=== PATIENT | male | born 2000 | race Caucasian/White ===

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

== ENCOUNTER 2022-07-16 08:39 | Emergency (ER) | payer BC, OTHER ==
--- OUTSIDE RECORDS SUMMARY | 2022-07-16 08:44 | XMS REPORT | Continuity of Care Document ---
:2000 Author Organization [facility] t Address [address] [place] [address] Dr. Rios. [address] [place] [address] Care Team Providers Name Role Phone Will Wesley Primary Care Physician ADE VAN Attending Clinician Unavailable Ade Van MD Attending Clinician Doctor Unassigned, [place] Attending Clinician Unavailable HOANG NAPIER Attending Clinician Unavailable Hoang Mc Attending Clinician Miles Rincon MD Attending Clinician RAMOS GARG Attending Clinician Unavailable TAZ PATINO Attending Clinician Unavailable Taz Alexander Attending Clinician JAMI LOOMIS Attending Clinician Unavailable Only, Ang Db Test Attending Clinician Unavailable Jami Loomis PA-C Attending Clinician Destiny COLLINSPema Attending Clinician Unavailable Nette Orr MD Attending Clinician NTETE ORR Attending Clinician Unavailable Erin Encinas Attending Clinician Jenna HUFFMAN, Nader Hooker Attending Clinician HOANG NAPIER Admitting Clinician Unavailable Payers Payer Name Policy Type Policy Number Effective Date Expiration Date Dayana IRVING [id number] 2016 HEALTH 00:00:00 Problems Condition Condition Condition Status Onset Resolution Last Treating Co mments Source Name Details Category Date Date Treatment Clinician Date No known No known Disease Unive rs active active ity of problems problems [facility] Allergies, Adverse Reactions, Alerts Allergy Allergy Status Severity Reaction(s) Onset Inactive Treating Comm ents Source Name Type Date Date Clinician No Known DA Active U [facility] Allergie 2-20 Clear s 00:00: Trinh 00 [facility] NO KNOWN Drug Active Univers ALLERGIE Class ity of S [facility] Social History Social Habit Start Date Stop Date Quantity Comments Source Exposure to 2022-06-26 2022-07-06 Not sure [facility] SARS-CoV-2 00:00:00 19:56:00 [facility] (event) [place] Tobacco use and 2019-05-28 2019-05-28 Smokeless tobacco Un iversity of exposure 00:00:00 00:00:00 non-user [facility] Sex Assigned At [birth year] Universit y of 00:00:00 00:00:00 [facility] Smoking Status Start Date Stop Date Source Never smoked tobacco [facility] Medications Ordered Filled Start Stop Current Ordering Indication Dosage Frequency Signature Comments Components Source Medication Medication Date Date Medication? Clinician (SIG) Name Name clotrimazol 2021-07 Yes [id number] 1{appli Apply 1 Univers e 1 % 2-27 cator} Applicator ity of ointment 00:00: to area(s) [place] 00 2 (two) Medical times [place] daily. mupirocin 2 2021-07 Yes [id number] Apply to Univers % ointment 2-27 area(s) 3 ity of 00:00: (three) [place] 00 times Medical daily. Branch clindamycin 2021-07- Yes [id number] 300mg Take 1 Univers 300 mg 2-27 07-17 capsule by ity of capsule 00:00: 05:59 mouth 4 [place] 00 :00 (four) Medical times Branch daily for 10 days. fluoxetine 0 Yes Take by Univ ers HCl 1-25 mouth. ity of (FLUOXETINE 00:15: [place] ORAL) 50 Medical Branch traZODone 0 Yes 50mg Take 50 mg Un maurizio 50 mg 1-25 by mouth ity of tablet 00:15: at bedtime [place] 50 as needed Medical for Branch Insomnia. fluoxetine 0 Yes Take by Univ ers HCl 1-25 mouth. ity of (FLUOXETINE 00:15: [place] ORAL) 50 Medical Branch traZODone 0 Yes 50mg Take 50 mg Un maurizio 50 mg 1-25 by mouth ity of tablet 00:15: at bedtime [place] 50 as needed Medical for Branch Insomnia. fluoxetine 0 Yes Take by Univ ers HCl 1-25 mouth. ity of (FLUOXETINE 00:15: [place] ORAL) 50 Medical Branch traZODone 0 Yes 50mg Take 50 mg Un maurizio 50 mg 1-25 by mouth ity of tablet 00:15: at bedtime [place] 50 as needed Medical for Branch Insomnia. fluoxetine 0 Yes Take by Univ ers HCl 1-25 mouth. ity of (FLUOXETINE 00:15: [place] ORAL) 50 Medical Branch traZODone 0 Yes 50mg Take 50 mg Un maurizio 50 mg 1-25 by mouth ity of tablet 00:15: at bedtime [place] 50 as needed Medical for Branch Insomnia. fluoxetine 0 Yes Take by Univ ers HCl 1-25 mouth. ity of (FLUOXETINE 00:15: [place] ORAL) 50 Medical Branch traZODone 0 Yes 50mg Take 50 mg Un maurizio 50 mg 1-25 by mouth ity of tablet 00:15: at bedtime [place] 50 as needed Medical for Branch Insomnia. fluoxetine 0 Yes Take by Univ ers HCl 1-25 mouth. ity of (FLUOXETINE 00:15: [place] ORAL) 50 Medical Branch traZODone 0 Yes 50mg Take 50 mg Un maurizio 50 mg 1-25 by mouth ity of tablet 00:15: at bedtime [place] 50 as needed Medical for Branch Insomnia. fluoxetine 0 Yes Take by Univ ers HCl 1-25 mouth. ity of (FLUOXETINE 00:15: [place] ORAL) 50 Medical Branch traZODone 2020-0 Yes 50mg Take 50 mg Un maurizio 50 mg 1-25 by mouth ity of tablet 00:15: at bedtime [place] 50 as needed Medical for Branch Insomnia. fluoxetine 0 Yes Take by Univ ers HCl 1-25 mouth. ity of (FLUOXETINE 00:15: [place] ORAL) 50 Medical Branch traZODone 2020-0 Yes 50mg Take 50 mg Un maurizio 50 mg 1-25 by mouth ity of tablet 00:15: at bedtime [place] 50 as needed Medical for Branch Insomnia. fluoxetine 0 Yes Take by Univ ers HCl 1-25 mouth. ity of (FLUOXETINE 00:15: [place] ORAL) 50 Medical Branch traZODone 2020-0 Yes 50mg Take 50 mg Un maurizio 50 mg 1-25 by mouth ity of tablet 00:15: at bedtime [place] 50 as needed Medical for Branch Insomnia. fluoxetine 0 Yes Take by Univ ers HCl 1-25 mouth. ity of (FLUOXETINE 00:15: [place] ORAL) 50 Medical Branch traZODone 0 Yes 50mg Take 50 mg Un maurizio 50 mg 1-25 by mouth ity of tablet 00:15: at bedtime [place] 50 as needed Medical for Branch Insomnia. FLUoxetine 0 Yes [id number] 20mg Take 1 U nivers 20 mg 1-25 capsule by ity of capsule 00:00: mouth [place] 00 daily. Medical Branch FLUoxetine 2020-0 Yes [id number] 20mg Take 1 U nivers 20 mg 1-25 capsule by ity of capsule 00:00: mouth [place] 00 daily. Medical Branch FLUoxetine 2020-0 Yes [id number] 20mg Take 1 U nivers 20 mg 1-25 capsule by ity of capsule 00:00: mouth [place] 00 daily. Medical Branch FLUoxetine 2020-0 Yes [id number] 20mg Take 1 U nivers 20 mg 1-25 capsule by ity of capsule 00:00: mouth [place] 00 daily. Medical Branch FLUoxetine 2020-0 Yes [id number] 20mg Take 1 U nivers 20 mg 1-25 capsule by ity of capsule 00:00: mouth [place] 00 daily. Medical Branch FLUoxetine 2020-0 Yes [id number] 20mg Take 1 U nivers 20 mg 1-25 capsule by ity of capsule 00:00: mouth [place] 00 daily. Medical Branch FLUoxetine 2021-0 Yes [id number] 20mg Take 1 U nivers 20 mg 1-25 capsule by ity of capsule 00:00: mouth [place] 00 daily. Medical Branch FLUoxetine 2021-0 Yes [id number] 20mg Take 1 U nivers 20 mg 1-25 capsule by ity of capsule 00:00: mouth [place] 00 daily. Medical Branch FLUoxetine 2021-0 Yes [id number] 20mg Take 1 U nivers 20 mg 1-25 capsule by ity of capsule 00:00: mouth [place] 00 daily. Medical Branch FLUoxetine 2021-0 Yes [id number] 20mg Take 1 U nivers 20 mg 1-25 capsule by ity of capsule 00:00: mouth [place] 00 daily. Medical Branch VYVANSE 40 Yes TAKE ONE Uni vers mg capsule 8-09 CAPSULE BY ity of 00:00: MOUTH [place] 00 EVERY Medical MORNING Branch [facility] 40 Yes TAKE ONE Uni vers mg capsule 8-09 CAPSULE BY ity of 00:00: MOUTH [place] 00 EVERY Medical MORNING Branch [facility] 40 Yes TAKE ONE Uni vers mg capsule 8-09 CAPSULE BY ity of 00:00: MOUTH [place] 00 EVERY Medical MORNING Branch VANS 40 Yes TAKE ONE Uni vers mg capsule 8-09 CAPSULE BY ity of 00:00: MOUTH [place] 00 EVERY Medical MORNING Branch VYVANS 40 Yes TAKE ONE Uni vers mg capsule 8-09 CAPSULE BY ity of 00:00: MOUTH [place] 00 EVERY Medical MORNING Branch VYVANS 40 Yes TAKE ONE Uni vers mg [...] Time Observation Value Comments Source Systolic blood 2022-07-07 02:00:00 120 mm[Hg] Univer sity of pressure [place] [facility] Diastolic blood 2022-07-07 02:00:00 77 mm[Hg] Unive rsity of pressure [facility] Heart rate 2022-07-07 02:00:00 88 /min Universi ty of [place] [facility] [place] Body temperature 2022-07-07 02:00:00 37 Zahida Univ ersity of [facility] Branch Respiratory rate 2022-07-07 02:00:00 16 /min Univ ersity of [place] [facility] Branch Body height 2022-07-07 02:00:00 175.3 cm Universi ty of [place] [facility] [place] Body weight 2022-07-07 02:00:00 82.555 kg Universi ty of [place] [facility] Branch BMI 2022-07-07 02:00:00 26.88 kg/m2 Universi ty of [facility] Oxygen saturation in 2022-07-07 02:00:00 99 /min [facility] Arterial blood by [facility] Pulse oximetry Branch Systolic blood 2021-10-20 18:00:00 123 mm[Hg] Univer sity of pressure [facility] Diastolic blood 2021-10-20 18:00:00 74 mm[Hg] Unive rsity of pressure [facility] Heart rate 2021-10-20 18:00:00 68 /min Universi ty of [place] [facility] Body height 2021-10-20 18:00:00 175.3 cm Universi ty of [place] [facility] [place] Body weight 2021-10-20 18:00:00 74.844 kg Universi ty of [place] [facility] BMI 2021-10-20 18:00:00 24.37 kg/m2 Universi ty of [place] [facility] [place] Body mass index 2021-10-20 18:00:00 71.11 % Unive rsity of (BMI) [Percentile] [place] Med ical Per age and sex Branch Procedures Procedure Date / Time Performed Performing Clinician [facility] e CONSENT/REFUSAL FOR 2022-07-07 01:28:38 Doctor [facility]igned, [facility] Name Medical Branch TREATMENT EXTERNAL PROVIDER 2021-11-25 05:01:00 Doctor Unassigned, No Univ ersity [facility] RECORDS Name Medical Branch EXTERNAL PROVIDER 2021-11-17 05:01:00 Doctor Unassigned, No [facility] RECORDS Name Medical Branch MR SHOULDER RIGHT WO 2021-11-12 14:30:00 Hoang Napier [facility] ASSIGNMENT OF BENEFITS 2021-11-12 13:41:36 Doctor Unassigned, No [facility] Name Medical Branch REFERRAL- 2021-10-29 05:01:00 Doctor [facility]assigned, No [facility] REQUEST/RESPONSE Name Medical [place] Encounters Start End Encounter Admission Attending Care Care Encounter Source Date/Time Date/Time Type Type Clinicians Facility Department ID 2021-05-09 Emergency [facility] [id number] Univers 19:11:46 itlaurie [facility] 2022-07-06 2022-07-06 Emergency X [facility] E[facility] [id number] Univers 20:03:00 20:47:00 ADE nolasco [facility] 2022-07-06 2022-07-06 Emergency [facility] [id number] Univers 20:03:00 20:47:00 Ade BARCENAS 350.1.13.10 i ty [facility] 4.2.7.2.686 [place] [facility] [phone] [facility] 084 [place] 2021-11-25 2021-11-25 Orders Doctor CROOK 1.2.840.114 [id number] Univers 00:00:00 00:00:00 Only Unassigned, SONYA 350.1.13.10 ity of [place] [facility] 4.2.7.2.686 [place] [phone] [facility] 009 [place] 2021-11-17 2021-11-17 Orders Doctor ARMAAN 1.2.840.114 [id number] Univers 00:00:00 00:00:00 Only Unassigned, SONYA 350.1.13.10 ity of [place] [facility] 4.2.7.2.686 [place] [phone] [address] 2021-11-12 2021-11-12 Outpatient R KARTHIKEYAN [facility] [id number] Univers 08:43:56 23:59:00 HOANG nolasco [facility] 2021-11-12 2021-11-12 [facility] 1.2.840.114 [id number] Univers 08:43:56 23:59:00 Encounter Hoang S [place] 350.1.13.10 ity of [place] 4.2.7.2.686 [place] [phone] [facility] 804 [place] 2021-11-12 2021-11-12 Orders Doctor ARMAAN 1.2.840.114 [id number] Univers 00:00:00 00:00:00 Only Unassigned, SONYA 350.1.13.10 ity of [place] [facility] 4.2.7.2.686 [place] as [phone] [facility] 009 [place] 2021-11-12 2021-11-12 Telephone [facility] 1.2.840.114 [id number] Univers 00:00:00 00:00:00 Miles L HEALTH 350.1.13.10 it y of [place] 4.2.7.2.686 [place] as GORDON?BLEA [phone] Ky smith [address] MEDICAL [facility] 2021-11-04 2021-11-04 Telephone [facility] [id number] Univers 00:00:00 00:00:00 Hoang S HEALTH 350.1.13.10 it [facility] 4.2.7.2.686 [place] GORDON?BLEA [phone] [place] smith [address] [facility] 2021-10-29 2021-10-29 Orders Doctor ARMAAN 1.2.840.114 [id number] Univers 00:00:00 00:00:00 Only Unassigned, SONYA 350.1.13.10 ity of [place] [facility] 4.2.7.2.686 [place] as [phone] [facility] 009 [place] 2021-10-28 2021-10-28 Telephone [facility] [id number] Univers 00:00:00 00:00:00 Hoang S HEALTH 350.1.13.10 it y of [place] 4.2.7.2.686 [place] GORDON?BLEA [phone] Ky smith [address] [facility] 2021-10-20 2021-10-20 [facility] [id number] Univers 13:15:00 14:13:28 [facility] 2021-10-20 2021-10-20 [facility] 1.2.840.114 [id number] Univers 13:15:00 13:30:00 Visit [facility] 350.1.13.10 it y of [facility] 4.2.7.2.686 [place] as GORDON?BLEA [phone] Ky smith CRUZ [address] [place] [address] [facility] 2021-10-20 2021-10-20 Outpatient Tomer NAPIER [facility] [id number] Univers 13:15:00 13:15:00 HOANG laurie [facility] 2021-09-29 2021-09-29 Outpatient [facility] [id number] Univers 14:10:00 23:59:00 [facility] 2021-09-29 2021-09-29 Office [facility] 1.2.840.114 [id number] Univers 14:30:00 15:00:00 Visit [facility] 350.1.13.10 it y of [facility] 4.2.7.2.686 [place] as GORDON?BLEA [phone] Ky glennheidy CRUZ [address] [place] [address] [facility] 2021-09-29 2021-09-29 Outpatient Tom[facility] [id number] Univers 14:30:00 14:37:47 HOANG [facility] 2021-09-22 2021-09-22 Orders Doctor ARMAAN 1.2.840.114 [id number] Univers 00:00:00 00:00:00 Only Unassigned, SONYA 350.1.13.10 ity of [place] [facility] 4.2.7.2.686 [place] [phone] [address] 2021-07-11 2021-07-11 Outpatient Tomer GARG [facility] [id number] Univers 11:00:00 11:00:00 [facility] 2021-07-08 2021-07-08 Emergency X SUKUMAR, [facility] ERT [id number] Univers 21:22:00 22:03:00 TAZ ity [facility] 2021-07-08 2021-07-08 [facility] 1.2.840.114 [id number] Univers 21:22:00 22:03:00 Taz Ely SWAPNA 350.1.13.10 i ty [facility] 4.2.7.2.686 [place] [phone] [facility] 084 [place] 2021-07-05 2021-07-05 Outpatient R VLADISLAV [facility] [id number] Univers 14:45:00 15:51:29 [facility] 2021-07-05 2021-07-05 Laboratory Only, Ang Db Test [facility] 1.2.8 40.114 [id number] Univers 14:45:00 15:00:00 Only Vladislav Jami [place] 350.1.13.10 ity of [place] 4.2.7.2.686 [place] as GORDON?BLEA [phone] [address] [facility] 2021-04-06 2021-04-06 Letter ARMAAN [place] 1.2.840.114 [id number] Univers 00:00:00 00:00:00 (Out) Pema HASSAN 350.1.13.10 it y of [facility] 4.2.7.2.686 [place] as [phone] [facility] 019 [place] 2021-04-05 2021-04-05 Laboratory Only, Ang Db Test [facility] 1.2.8 40.114 [id number] Univers 13:17:46 13:32:46 Only Kirby Nette I2 [employer] 350.1.13.10 ity of [place] 4.2.7.2.686 [place] Gordon?Blea [phone] [address] Medical Office [facility] 2021-04-05 2021-04-05 Outpatient R KIRBY [facility] [id number] Univers 13:30:00 13:30:00 NETTE [facility] 2021-04-05 2021-04-05 Orders Doctor CROOK 1.2.840.114 [id number] Univers 00:00:00 00:00:00 Only UnassignedSONYA 350.1.13.10 ity of [place] [facility] 4.2.7.2.686 [place] as [phone] [facility] 009 Branch 2021-03-30 2021-03-30 Laboratory Only, Ang Db Test [facility] 1.2.8 40.114 [id number] Univers 16:46:16 17:01:16 Only Erin Ross [facility] 350.1.13.10 ity of [place] 4.2.7.2.686 [place] as Gordon?Blea [phone] [address] Medical Office Building 2021-03-30 2021-03-30 Outpatient R [facility] [id number] Univers 17:00:00 17:00:00 ity of [facility] 2021-03-30 2021-03-30 Letter Doctor ARMAAN 1.2.840.114 [id number] Univers 00:00:00 00:00:00 (Out) Unassigned, SONYA 350.1.13.10 ity of [place] [facility] 4.2.7.2.686 [place] as [phone] [facility] 044 [place] 2021-03-30 2021-03-30 Letter Doctor ARMAAN 1.2.840.114 [id number] Univers 00:00:00 00:00:00 (Out) Unassigned, SONYA 350.1.13.10 ity of [place] [facility] 4.2.7.2.686 [place] as [phone] [facility] 044 [place] 2020-08-03 2020-08-04 Emergency [facility], [facility] [id number] 22:33:00 02:43:00 Nader Barcenas 350.1.13.10 [place] 4.2.7.2.686 [place] [id number] [facility] 2020-08-03 2020-08-04 Emergency [facility] [id number] Univers 22:33:00 02:43:00 Nader Barcenas 350.1.13.10 ity of [place] 4.2.7.2.686 [place] [facility] [phone] [address] Results Test Description Test Time Test Comments Results Result Comments Source SURGICAL SPECIMENS 2018-09-06 07:45:00 RUN DATE: 09/06/18 [facility] *LIVE* PAGE 1 RUN TIME: 744 Specimen Inquiry RUN USER: INTERFACE PAT IENT: SHANTHI BURNHAM LOC: JAKE U #: [id number] AGE/SX: 17/M ROOM: RE09/01/18REG DR: Jose Crowe MD : 02 BED: DIS: STATUS: [facility] TLOC: SPEC #: [id number] RECD: 09/01/18 STATUS: RAVI REQ #: [id number] LOLA: 09/01/[address] [facility] [address]: Jose Crowe MD ENTERED: 09/05/18 SP TYPE: SURG SPEC OTHR DR: Leon Guadalupe MD ORDERED: LEVEL 4 CODES: [id number] - SOFT TISSUES, N COPIES TO: Leon Guadalupe MD [address] [place] [address] [id number] Jose Crowe MD [address] [place] [address] [address] [place] [address] PROCEDURES: GM LEVEL 4 (Incomplete) TISSUES: 1. [...] CONTINUED ON NEXT PAGE RUN DATE: 09/06/18 [facility] *LIVE* PAGE 2 RUN TIME: 0745 Specimen Inquiry RUN USER: INTERFACE TANNER Hawley #: [id number] PATIENT: SHANTHI BURNHAM #[id number] (Continued)-------- -------- Signed SIGNATURE ON FILE Jose [...] REQUIRED (test code = MDIFF) NO PROTHROMBIN [id number] 08:09:00 Test Item Value Reference Range Interpretation Comments PROTHROMBIN TIME 13.1 SECONDS 9.3-12.9 H PATIENT (test code = PTP) INTERNATIONAL NORMAL 1.2 0.8-1.2 N TARGET INR BY RATIO (test code = INDICATIO N Indication INR) INR1. Prophylax is of venous thrombos is 2.0 - 3.0 (orthoped ic surgery), Proph ylaxis of venous throm bosis (other than hig h-risk surgery), Treat ment of Deep Vein Thrombosis/Pulm onary Embolism, Preve ntion of systemic emb olism - Tissue heart va lves, Acute Myocardia l Infarction (to prevent systemic emboli sm), Valvular heart disease, Atrial Fibrillation, Bileaflet mecha nical valve in aortic position.2. Mec hanical prosthetic valv es (high risk), 2. 5 - 3.5 Presence of Lup us Anticoagulant o r Antiphospholipi d Antibodies, Pre vention of systemic emb olism - Acute Myocardia l Infarction (to prevent recurrent infar ct). THROMBOPLASTIN TIME [id number] 08:09:00 Test Item Value Reference Range Interpretation Comments THROMBOPLASTIN TIME 31.6 Seconds 25.0-39.5 N Therape utic Range: PARTIAL (test code = 61.8-83 .8 Sec PTT) Effective 08/08/2013
[2022-07-16] MEDS ORDERED: LIDOCAINE 1% 20 ML MDV ONE (09:08)
--- NOTE | 2022-07-16 09:40 | EDPHYS ---
Physician Documentation [facility] Name: Joycelyn Lopes Age: 21 yrs Sex: Male : 2000 Arrival Date: 07/16/2022 Time: 08:41 Bed 5 Private MD: ED Physician Carl Nichols HPI: 07/16 09:05 This 21 yrs old Male presents to ER via Wheelchair with complaints of Laceration To Leg.snw 09:05 The patient has a laceration related to: working, chainsaw, occurred outdoors, at work, snw and there are no complicating factors. The laceration(s) is(are) located on the left quadriceps. Onset: The symptoms/episode began/occurred suddenly, just prior to arrival. Associated signs and symptoms: The patient has no apparent associated signs or symptoms. The patient has not experienced similar symptoms in the past. The patient has not recently seen a physician. Historical: - Allergies: 08:46 Phenergan; ap3 - Home Meds: 08:46 None [Active]; ap3 - PMHx: 08:46 ADD/ADHD; Depression; Hernia; oppositional disruptive behavior; ap3 - PSHx: 08:46 hernia repair; ap3 - Immunization history:: Client reports having NOT received the Covid vaccine. Last tetanus immunization: up to date Flu vaccine is up to date. - Social history:: Smoking status: Reported history of juuling and/or vaping. ROS: 09:03 Constitutional: Negative for fever, chills, and weight loss, Eyes: Negative for injury, snw pain, redness, and discharge, ENT: Negative for injury, pain, and discharge, Neck: Negative for injury, pain, and swelling, Cardiovascular: Negative for chest pain, palpitations, and edema, Respiratory: Negative for shortness of breath, cough, wheezing, and pleuritic chest pain, Abdomen/GI: Negative for abdominal pain, nausea, vomiting, diarrhea, and constipation, Back: Negative for injury and pain, : Negative for injury, bleeding, discharge, and swelling, MS/Extremity: Negative for injury and deformity, Neuro: Negative for headache, weakness, numbness, tingling, and seizure, Psych: Negative for depression, anxiety, suicide ideation, homicidal ideation, and hallucinations. 09:03 Skin: Positive for laceration(s), of the left quadriceps. Exam: 09:01 Constitutional: This is a well developed, well nourished patient who is awake, alert, snw and in no acute distress. Head/Face: Normocephalic, atraumatic. Eyes: Pupils equal round and reactive to light, extra-ocular motions intact. Lids and lashes normal. Conjunctiva and sclera are non-icteric and not injected. Cornea within normal limits. Periorbital areas with no swelling, redness, or edema. ENT: Nares patent. No nasal discharge, no septal abnormalities noted. Tympanic membranes are normal and external auditory canals are clear. Oropharynx with no redness, swelling, or masses, exudates, or evidence of obstruction, uvula midline. Mucous membranes moist. Neck: Trachea midline, no thyromegaly or masses palpated, and no cervical lymphadenopathy. Supple, full range of motion without nuchal rigidity, or vertebral point tenderness. No Meningismus. Chest/axilla: Normal chest wall appearance and motion. Nontender with no deformity. No lesions are appreciated. 09:01 Respiratory: Lungs have equal breath sounds bilaterally, clear to auscultation and percussion. No rales, rhonchi or wheezes noted. No increased work of breathing, no retractions or nasal flaring. Abdomen/GI: Soft, non-tender, with normal bowel sounds. No distension or tympany. No guarding or rebound. No evidence of tenderness throughout. Back: No spinal tenderness. No costovertebral tenderness. Full range of motion. MS/ Extremity: Pulses equal, no cyanosis. Neurovascular intact. Full, normal range of motion. Neuro: Awake and alert, GCS 15, oriented to person, place, time, and situation. Cranial nerves II-XII grossly intact. Motor strength 5/5 in all extremities. Sensory grossly intact. Cerebellar exam normal. Normal gait. Psych: Awake, alert, with orientation to person, place and time. Behavior, mood, and affect are within normal limits. 09:01 Cardiovascular: Rate: tachycardic. 09:01 Skin: Appearance: Color: normal in color, injury, laceration(s), the wound is approximately 5 cm(s), with a depth of 3 cm(s), of the left quadriceps. Vital Signs: 08:44 BP 118 / 81; Pulse 94; Resp 17; Temp 97.8; Pulse Ox 98% ; Weight 82.1 kg; Height 5 ft. ap3 9 in. (175.26 cm); Pain 5/10; 08:44 Body Mass Index 26.73 (82.10 kg, 175.26 cm) ap3 Laceration: 09:32 Wound Repair of 5cm ( 2.0in ) subcutaneous laceration to left quadriceps. Linear snw shaped.. Distal neuro/vascular/tendon intact. Anesthesia: Wound infiltrated with 6 mls of 1% lidocaine. Wound prep: Extensive cleansing with hibiclenz by nurse by me. Skin closed with 7 3-0 Silk using simple sutures and sterile technique. Dressed with 4x4's, non-adherent dressing, sreekanth. Patient tolerated well. MDM: 08:49 Patient medically screened. snw 09:04 Data reviewed: vital signs, nurses notes. Data interpreted: Pulse oximetry: on room air snw is 98 %. Interpretation: normal. Counseling: I had a detailed discussion with the patient and/or guardian regarding: the historical points, exam findings, and any diagnostic results supporting the discharge/admit diagnosis, the need for outpatient follow up, for definitive care, to return to the emergency department if symptoms worsen or persist or if there are any questions or concerns that arise at home. Special discussion: I have referred the patient to see his PCP for further evaluation of high blood pressure. Based on the history and exam findings, there is no indication for further emergent testing or inpatient evaluation. I discussed with the patient/guardian the need to see the primary care provider for further evaluation of the symptoms. 07/16 09:01 Order name: Suture Tray Setup; Complete Time: 09:02 snw 07/16 09:42 Order name: Wound dressing; Complete Time: 09:48 snw 07/16 09:42 Order name: Sreekanth Wrap; Complete Time: 09:48 snw Administered Medications: 09:20 Drug: Hibiclens (chlorhexidine) Liquid 4 % 1 application Route: Topical; Site: wound; snw 09:30 Follow up: Response: No adverse reaction ph 09:22 Drug: Lidocaine-Epinephrine -1%: (1:100,000) 20 ml {Note: administered by NPShelly .} hb Volume: 20 ml; Route: Infiltration; 09:30 Follow up: Response: No adverse reaction ph 10:05 Drug: boosterix 0.5 ml Route: IM; Site: left deltoid; hb 10:15 Follow up: Response: No adverse reaction ph Disposition: 09:40 Co-signature as Attending Physician, Carl Nichols DO I was immediately available on-site ms3 in the Emergency Department for consultation in the care of the patient. Disposition Summary: 07/16/22 09:39 Discharge Ordered Location: Home snw Condition: Stable snw Diagnosis - Laceration without foreign body of lower leg snw Followup: snw - With: Emergency Department - When: As needed - Reason: Staple/Suture removal Followup: snw - With: Private Physician - When: As needed - Reason: Discharge Instructions: - Discharge Summary Sheet snw - Laceration Care, Adult snw Forms: - Medication Reconciliation Form snw - Thank You Letter snw - Antibiotic Education snw - Prescription Opioid Use snw - Work release form Prescriptions: - Doxycycline Hyclate 100 mg Oral Tablet - take 1 tablet by ORAL route every 12 hours; 20 tablet; Refills: 0, Product snw Selection Permitted - Tramadol 50 mg Oral Tablet - take 1 tablet by ORAL route every 8 hours as needed; 12 tablet; Refills: 0, snw Product Selection Permitted Signatures: Rossy Sarmiento, NIXON-C ELECTRONIC TYPESETTING MACHINE OPERATOR-Csnw Ana Holm, RN RN Mercy Nayak RN RN ap3 Carl Nichols DO DO ms3 Bessie Morillo RN ph
--- NOTE | 2022-07-16 09:40 | ER ---
Nurse's Notes [facility] Name: Joycelyn Lopes Age: 21 yrs Sex: Male : 2000 Arrival Date: 07/16/2022 Time: 08:41 Bed 5 Private MD: Diagnosis: Laceration without foreign body of lower leg Presentation: 07/16 08:44 Chief complaint: Patient states: he was cutting limbs with a chainsaw, when he pulled ap3 it loose from being stuck and it cut his leg right above his left knee. patient states his pain is currently a 5/10. Coronavirus screen: At this time, the client does not indicate any symptoms associated with coronavirus-19. Ebola Screen: No symptoms or risks identified at this time. Complicating Factors: The type of wound is a puncture. Initial Sepsis Screen: Does the patient meet any 2 criteria? No. Patient's initial sepsis screen is negative. Does the patient have a suspected source of infection? No. Patient's initial sepsis screen is negative. Risk Assessment: Do you want to hurt yourself or someone else? Patient reports no desire to harm self or others. Onset of symptoms was July 16, 2022. 08:44 Method Of Arrival: Wheelchair ap3 08:44 Acuity: CHRISTOS 4 ap3 Triage Assessment: 08:46 General: Appears in no apparent distress. Behavior is calm, cooperative. Pain: ap3 Complains of pain in left quadriceps Pain began suddenly. Neuro: Level of Consciousness is awake, alert, obeys commands, Oriented to person, place, time, situation, Speech is normal. Cardiovascular:. Respiratory: Airway is patent Respiratory effort is even, unlabored, Respiratory pattern is regular, symmetrical. Injury Description: Laceration sustained to left quadriceps is contaminated. Historical: - Allergies: 08:46 Phenergan; ap3 - Home Meds: 08:46 None [Active]; ap3 - PMHx: 08:46 ADD/ADHD; Depression; Hernia; oppositional disruptive behavior; ap3 - PSHx: 08:46 hernia repair; ap3 - Immunization history:: Client reports having NOT received the Covid vaccine. Last tetanus immunization: up to date Flu vaccine is up to date. - Social history:: Smoking status: Reported history of juuling and/or vaping. Screenin:47 Abuse screen: Denies threats or abuse. Nutritional screening: No deficits noted. ap3 Tuberculosis screening: No symptoms or risk factors identified. 09:05 [facility] ED Fall Risk Assessment (Adult) Score/Fall Risk Level 0 - 2 = Low Risk hb Oriented to surroundings, Maintained a safe environment. Assessment: 09:00 General: See triage assessment. hb Vital Signs: 08:44 BP 118 / 81; Pulse 94; Resp 17; Temp 97.8; Pulse Ox 98% ; Weight 82.1 kg; Height 5 ft. ap3 9 in. (175.26 cm); Pain 5/10; 08:44 Body Mass Index 26.73 (82.10 kg, 175.26 cm) ap3 ED Course: 08:41 Patient arrived in ED. as 08:45 Triage completed. ap3 08:47 Arm band placed on right wrist. ap3 08:48 Rossy Sarmiento FNP-C is PHCP. snw 08:48 Carl Nichols DO is Attending Physician. snw 08:48 Bessie Morilol, RN is Primary Nurse. ph 08:48 Patient has correct armband on for positive identification. Adult w/ patient. ap3 08:59 Irrigation of incision on left leg irrigated with normal saline Patient tolerated well. ap3 09:48 Dressings: non-adherent dressing x 1 left leg 4X4s X 2; left leg. Sreekanth wrap to left leg. em1 10:06 No provider procedures requiring assistance completed. Patient did not have IV access hb during this emergency room visit. Administered Medications: 09:20 Drug: Hibiclens (chlorhexidine) Liquid 4 % 1 application Route: Topical; Site: wound; snw 09:30 Follow up: Response: No adverse reaction ph 09:22 Drug: Lidocaine-Epinephrine -1%: (1:100,000) 20 ml {Note: administered by NPShelly .} hb Volume: 20 ml; Route: Infiltration; 09:30 Follow up: Response: No adverse reaction ph 10:05 Drug: boosterix 0.5 ml Route: IM; Site: left deltoid; hb 10:15 Follow up: Response: No adverse reaction ph Medication: 10:06 Vaccine Information Statement (VIS) provided today. Questions and/or concerns hb addressed. VIS edition date: July 16, 2022. Outcome: 09:39 Discharge ordered by . snw 10:06 Discharged to home ambulatory. hb 10:06 Condition: stable 10:06 Discharge instructions given to patient, Instructed on discharge instructions, follow up and referral plans. medication usage, wound care, Demonstrated understanding of instructions, follow-up care, medications, wound care, Prescriptions given X 2. 10:07 Patient left the ED. Signatures: Rossy Sarmiento, REGISTRATION REP-C REGISTRATION REP-Csnw Clara Martinez Eric em1 Bessie Morillo RN RN Ana Holm RN RN Mercy Nayak RN RN ap3
[2022-07-16] MEDS ORDERED: TDAP (DIPHTH,PERTUSS(ACELL),TET VAC) 0.5 ML VIAL IMVAC ONE (10:02)
[2022-07-16 10:11] VITALS: BP 118/81; TEMP 97.8; O2SAT 98
== END 2022-07-16 10:07 | disposition home or self-care (01) ==
LOC: ER 08:39
PROC: 0HQLXZZ Repair Left Lower Leg Skin, External Approach (ICD-10-PCS; principal; 2022-07-16)
DX: S81.812A Laceration without foreign body, left lower leg, initial encounter (principal); Z88.8 Allergy status to other drugs, medicaments and biological substances
CPT/HCPCS: 96372; 99284

== ENCOUNTER 2024-10-08 07:01 | Emergency (ER) | payer BC, OTHER, SELFPAY ==
--- OUTSIDE RECORDS SUMMARY | 2024-10-08 07:05 | XMS REPORT | Continuity of Care Document ---
Author Name Unknown Address [address] [facility] [address]. [address] [place] [address] [facility] Address [address] [facility]. [address] [place] [address] Care Team Providers Care Truck Washer Name Role Phone Leon Guadalupe Primary Care Physician [phone] Doctor Unassigned, [place] Attending Clinician U ADE Salazar Attending Clinician Unavailable Ade Van MD Attending Clinician [phone] Doctor Unassigned, [place] Attending Clinician U HOANG Haines Attending Clinician Unavailable Hoang Mc Attending Clinician [phone] Miles Rincon MD Attending Clinician [phone] RAMOS GARG Attending Clinician Unavailable TAZ PATINO Attending Clinician Unavailable Taz Alexander Attending Clinician [phone] JAMI LOOMIS Attending Clinician Unavailable Only, Ang Db Test Attending Clinician UnavailJami Blount PA-C Attending Clinician [phone] Destiny COLLINS, Pema Lin Attending Clinician Unavailab Torey HUFFMAN, Nette Attending Clinician [phone] NETTE HEAD Attending Clinician Unavailable Erin Encinas Attending Clinician [phone] Jenna HUFFMAN, Nader Hooker Attending Clinician [phone] HOANG NAPIER Admitting Clinician Unavailable Payers Payer Name Policy Type Policy Number Effective Date Expirati on Date Source [facility] [id number] 2016 00:00:00 Problems Condition Name Condition Details Condition Category Status Onset Date Resolution Date Last Treatment Date Treating Clinician Comments Source No known active problems No known active problems Disease [facility] Allergies, Adverse Reactions, Alerts Allergy Name Allergy Type Status Severity Reaction(s) Onset Date Inactive Date Treating Clinician Comments Source No Known Allergie s DA Active U 08-30 00:00: 00 [facility] NO KNOWN ALLERGIE S Drug Class Active [facility] Social History Social Habit Start Date Stop Date Quantity Comments Source Sexual orientation U [facility] Exposure to SARS-CoV-2 (event) 2022-06-26 00:00:00 2022-07-06 19:56:00 Not sure [facility] History of Social function 2021-09-29 00:00:00 2021-09-29 00:00:00 [facility] Tobacco use and exposure 2019-05-28 00:00:00 2019-05-28 00:00:00 Smokeless tobacco non-user [facility] Sex assigned at 2000 00:00:00 2000 00:00:00 [facility] Smoking Status Start Date Stop Date Source Never smoked tobacco [facility] Medications Ordered Medication Name Filled Medication Name Start Date Stop Date Current Medication? Ordering Clinician Indication Dosage Frequency Signature (SIG) Comments Components Source clotrimazol e 1 % ointment 2021-07 00:00: 00 Yes [id number] 1{appli cator} Apply 1 Applicator to area(s) 2 (two) times daily. [facility] mupirocin 2 % ointment 2021-07 00:00: 00 Yes [id number] Apply to area(s) 3 (three) times daily. [facility] clindamycin 300 mg capsule 2021-07 00:00: 00 07-17 05:59 :00 No [id number] 300mg Take 1 capsule by mouth 4 (four) times daily for 10 days. [facility] fluoxetine HCl (FLUOXETINE ORAL) 08-04 00:15: 50 Yes Take by mouth. [facility] traZODone 50 mg tablet 08-04 00:15: 50 Yes 50mg Take 50 mg by mouth at bedtime as needed for Insomnia. [facility] FLUoxetine 20 mg capsule 08-04 00:00: 00 Yes [id number] 20mg Take 1 capsule by mouth daily. [facility] VYVANSE 40 mg capsule 02-16 00:00: 00 Yes TAKE ONE CAPSULE BY MOUTH EVERY MORNING [facility] Vital Signs Vital Name Observation Time Observation Value Comments S ource Systolic blood pressure 2022-07-07 02:00:00 120 mm[Hg] [facility] Diastolic blood pressure 2022-07-07 02:00:00 77 mm[Hg] [facility] Heart rate 2022-07-07 02:00:00 88 /min [facility] Body temperature 2022-07-07 02:00:00 37 Zahida [facility] Respiratory rate 2022-07-07 02:00:00 16 /min [facility] Body height 2022-07-07 02:00:00 175.3 cm [facility] Body weight 2022-07-07 02:00:00 82.555 kg [facility] BMI 2022-07-07 02:00:00 26.88 kg/m2 [facility] Oxygen saturation in Arterial blood by Pulse oximetry 2022-07-07 02:00:00 99 /min [facility] Systolic blood pressure 2021-10-20 18:00:00 123 mm[Hg] [facility] Diastolic blood pressure 2021-10-20 18:00:00 74 mm[Hg] [facility] Heart rate 2021-10-20 18:00:00 68 /min [facility] Body height 2021-10-20 18:00:00 175.3 cm [facility] Body weight 2021-10-20 18:00:00 74.844 kg [facility] BMI 2021-10-20 18:00:00 24.37 kg/m2 [facility] Body mass index (BMI) [Percentile] Per age and sex 2021-10-20 18:00:00 71.11 % [facility] Systolic blood pressure 2022-07-07 02:00:00 120 mm[Hg] [facility] Diastolic blood pressure 2022-07-07 02:00:00 77 mm[Hg] [facility] Heart rate 2022-07-07 02:00:00 88 /min [facility] Body temperature 2022-07-07 02:00:00 37 Zahida [facility] Respiratory rate 2022-07-07 02:00:00 16 /min [facility] Body height 2022-07-07 02:00:00 175.3 cm [facility] Body weight 2022-07-07 02:00:00 82.555 kg [facility] BMI 2022-07-07 02:00:00 26.88 kg/m2 [facility] Oxygen saturation in Arterial blood by Pulse oximetry 2022-07-07 02:00:00 99 /min [facility] Procedures Procedure Date / Time Performed Performing Clinicia n Source CONSENT/REFUSAL FOR DIAGNOSIS AND TREATMENT 2022-07-07 01:28:38 Doctor Unassigned, [place] [facility] EXTERNAL PROVIDER RECORDS 2021-11-25 05:01:00 Doctor Unassigned, [place] [facility] EXTERNAL PROVIDER RECORDS 2021-11-17 05:01:00 Doctor Unassigned, [place] [facility] MR SHOULDER RIGHT WO CONTRAST 2021-11-12 14:30:00 Hoang Napier [facility] ASSIGNMENT OF BENEFITS 2021-11-12 13:41:36 Docto r Unassigned, [place] [facility] REFERRAL- REQUEST/RESPONSE 2021-10-29 05:01:00 Doctor Unassigned, [place] [facility] Encounters Start Date/Time End Date/Time Encounter Type Admission Type Attending [facility] Care Department Encounter ID Source 2021-05-09 19:11:46 Emergency [facility] [id number] [facility] 2017-04-08 00:00:00 2024-08-25 03:37:29 Orders Only Doctor Unassigned, [place] Doctor Unassigned, [place] [facility] 1.2.840.114 350.1.13.10 4.2.7.2.686 [id number] [facility] 2023-08-16 07:43:21 2023-08-16 07:43:21 Outpatient [facility] [id number] Josestacey Blackmon 2023-01-28 13:36:25 2023-01-28 13:36:25 Outpatient [facility] [id number] Josestacey Blackmon 2022-07-06 20:03:00 2022-07-06 20:47:00 Emergency X [facility]DE [facility] ERT [id number] [facility] 2022-07-06 20:03:00 2022-07-06 20:47:00 Emergency Ade Van [facility] 1..840.114 350.1.13.10 4.2.7.2.686 [id number] [facility] 2021-11-25 00:00:00 2021-11-25 00:00:00 Orders Only Doctor Unassigned, [place] [facility] 1.2.840.114 350.1.13.10 4.2.7.2.686 [id number] [facility] 2021-11-17 00:00:00 2021-11-17 00:00:00 Orders Only Doctor Unassigned, [place] [facility] 1.2.840.114 350.1.13.10 4.2.7.2.686 [id number] [facility] 2021-11-12 08:43:56 2021-11-12 23:59:00 Outpatient R KARTHIKEYAN HOANG [facility] [id number] [facility] 2021-11-12 08:43:56 2021-11-12 23:59:00 Hospital Encounter Hoang Napier [facility] 1.2.840.114 350.1.13.10 4.2.7.2.686 [id number] [facility] 2021-11-12 00:00:00 2021-11-12 00:00:00 Orders Only Doctor Unassigned, [place] [facility] 1.2840.114 350.1.13.10 4.2.7.2.686 [id number] [facility] 2021-11-12 00:00:00 2021-11-12 00:00:00 Telephone Miles Rincon [facility] 1.2840.114 350.1.13.10 4.2.7.2.686 [id number] [facility] 2021-11-04 00:00:00 2021-11-04 00:00:00 Telephone Karthikeyan [facility] 1.2840.114 350.1.13.10 4.2.7.2.686 [id number] [facility] 2021-10-29 00:00:00 2021-10-29 00:00:00 Orders Only Doctor Unassigned, [place] [facility] 1.2840.114 350.1.13.10 4.2.7.2.686 [id number] [facility] 2021-10-28 00:00:00 2021-10-28 00:00:00 Telephone Karthikeyan [facility] 1..840.114 350.1.13.10 4.2.7.2.686 [id number] [facility] 2021-10-20 13:15:00 2021-10-20 14:13:28 Outpatient R KARTHIKEYAN [facility] [id number] [facility] 2021-10-20 13:15:00 2021-10-20 13:30:00 Office Visit Karthikeyan [facility] 1..840.114 350.1.13.10 4.2.7.2.686 [id number] [facility] 2021-10-20 13:15:00 2021-10-20 13:15:00 Outpatient R KARTHIKEYAN [facility] [id number] [facility] 2021-09-29 14:10:00 2021-09-29 23:59:00 Outpatient R KARTHIKEYAN [facility] [id number] [facility] 2021-09-29 14:30:00 2021-09-29 15:00:00 Office Visit Karthikeyan [facility] 1..840.114 350.1.13.10 4.2.7.2.686 [id number] [facility] 2021-09-29 14:30:00 2021-09-29 14:37:47 Outpatient R KARTHIKEYAN [facility] [id number] [facility] 2021-09-22 00:00:00 2021-09-22 00:00:00 Orders Only Doctor Unassigned, [place] [facility] 1..840.114 350.1.13.10 4.2.7.2.686 [id number] [facility] 2021-07-11 11:00:00 2021-07-11 11:00:00 Outpatient R BRITANYRAMOS [facility] [id number] [facility] 2021-07-08 21:22:00 2021-07-08 22:03:00 Emergency X TAZ PATINO [facility] ERT [id number] [facility] 2021-07-08 21:22:00 2021-07-08 22:03:00 Emergency Taz Patino B [facility] 1.2840.114 350.1.13.10 4.2.7.2.686 [id number] [facility] 2021-07-05 14:45:00 2021-07-05 15:51:29 Outpatient R VLADISLAV [facility] [id number] [facility] 2021-07-05 14:45:00 2021-07-05 15:00:00 Laboratory Only Only, Ang Db Test Vladislav [facility] 1.2.840.114 350.1.13.10 4.2.7.2.686 [id number] [facility] 2021-04-06 00:00:00 2021-04-06 00:00:00 Letter (Out) Pema Dixon [facility] 1..84.114 350.1.13.10 4.2.7.2.686 [id number] [facility] 2021-04-05 13:17:46 2021-04-05 13:32:46 Laboratory Only Only, Ang Db Test [facility] 1.284.114 350.1.13.10 4.2.7.2.686 [id number] [facility] 2021-04-05 13:30:00 2021-04-05 13:30:00 Outpatient R NETTE HEAD [facility] [id number] [facility] 2021-04-05 00:00:00 2021-04-05 00:00:00 Orders Only Doctor Unassigned, [place] [facility] 1.2.840.114 350.1.13.10 4.2.7.2.686 [id number] [facility] 2021-03-30 16:46:16 2021-03-30 17:01:16 Laboratory Only Only, Ang Db [facility] 1.2840.114 350.1.13.10 4.2.7.2.686 [id number] [facility] 2021-03-30 17:00:00 2021-03-30 17:00:00 Outpatient R [facility] [id number] [facility] 2021-03-30 00:00:00 2021-03-30 00:00:00 Letter (Out) Doctor Unassigned, [place] [facility] 1.2.840.114 350.1.13.10 4.2.7.2.686 [id number] [facility] 2021-03-30 00:00:00 2021-03-30 00:00:00 Letter (Out) Doctor Unassigned, [place] [facility] 1.2.840.114 350.1.13.10 4.2.7.2.686 [id number] [facility] 2020-08-03 22:33:00 2020-08-04 02:43:00 Emergency [facility] 1.2.840.114 350.1.13.10 4.2.7.2.686 [id number] 2020-08-03 22:33:00 2020-08-04 02:43:00 Emergency [facility] 1.2.840.114 350.1.13.10 4.2.7.2.686 [id number] [facility] Results Test Description Test Time Test Comments Results Result Co mments Source SURGICAL SPECIMENS 2018-09-06 07:45:00 RUN DATE: 09/06/18 [facility] *LIVE* PAGE 1 RUN TIME: 744 Specimen Inquiry RUN USER: INTERFACE PAT IENT: SHANTHI BURNHAM LOC: GISSELLU U #: [id number] AGE/SX: 17/M ROOM: RE09/01/18[facility] DR: Jose Crowe MD : 02 BED: DIS: STATUS: [facility] TLOC: SPEC #: [id number] RECD: 09/01/18 STATUS: RAVI RERula #: [id number] LOLA: 09/01/[address]: Jose Crowe MD ENTERED: 09/05/18 SP TYPE: SURG SPEC OTHR DR: Leon Guadalupe MD ORDERED: LEVEL 4 CODES: [id number] - SOFT TISSUES, N COPIES TO: Leon Guadalupe MD [address] [place] [address] Jose Crowe MD [address] [place] [address] [address] [place] [address] PROCEDURES: LEVEL 4 (Incomplete) TISSUES: 1. SOFT [...] CONTINUED ON NEXT PAGE RUN DATE: 09/06/18 [facility] *LIVE* PAGE 2 RUN TIME: 45 Specimen Inquiry RUN USER: INTERFACE TANNER Hawley #: [id number] PATIENT: SHANTHI BURNHAM #[id number] (Continued)-------- -------- Signed SIGNATURE ON FILE Jose Ferguson MD 09/06/18 0745 END OF REPORT PROTHROMBIN [id number] 08:09:00* Test Item Value Reference Range Interpretation [facility] PROTHROMBIN TIME PATIENT (test code = PTP) 13.1 SECONDS 9.3-12.9 H INTERNATIONAL NORMAL RATIO (test code = INR) 1.2 0.8-1.2 N TARGET INR BY INDICATION Indication INR1. Prophylaxis of venous thrombosis [...] Infarction (to prevent recurrent infarct). THROMBOPLASTIN TIME [id number] 08:09:00* Test Item Value Reference Range Interpretation Comme [facility] THROMBOPLASTIN TIME PARTIAL (test code = PTT) 31.6 Seconds 25.0-39.5 N Therapeutic Rang e: 61.8-83.8 Sec Effective 08/08/2013 Notes Date/Time Note Provider Source 2018-09-05 17:36:00 [id number] [address] PATIENT NAME: SHANTHI BURNHAM ADMIT DATE: 09/01/18 ACCOUNT NO: [id number] ROOM NO: AGE: 17 REPORT TYPE: OPERATIVE REPORT SEX: M ADMITTING PHYSICIAN: ATTENDING PHYSICIAN:Jose Crowe MD OPERATION DATE: 09/01/2018 PREOPERATIVE DIAGNOSIS: Congenital epigastric hernia. POSTOPERATIVE DIAGNOSIS: Congenital epigastric hernia. PROCEDURE: Repair of a congenital epigastric hernia. SURGEON: Jose Crowe MD ADVERTISING MATERIAL DISTRIBUTOR: Siri Hewitt. INDICATIONS: Shanthi is a 17-year-old boy with a history of a midline hernia above the umbilicus, which has been present since . It continues to worsen causing him pain and he has liked it to have it repaired at this time due to sports and work considerations. I discussed the plan in detail with family including risks and benefits. Risks discussed include bleeding, infection, recurrence, and need for reoperation. Parents understand these risks and agreed to proceed despite them. All their questions were answered. PROCEDURE IN DETAIL: The patient was brought to the operating room and placed in a supine position. Under general endotracheal anesthesia, the abdomen was prepped and draped in sterile fashion. A transverse incision was made several centimeters above the umbilicus at the point where on physical examination this was found preoperatively. We carried down through the subcutaneous tissue and a large epiplocele was identified. Portion of the epiplocele were pulled into the wound and amputated. We pushed the remainder of the epiplocele into the peritoneal cavity as there was no intervening peritoneum seen obviously. The transverse hernia was approximately 3 cm in width with a small intervening fibrous attachment. This was opened allowing us to reduce the hernia. The fascial defect was then closed with interrupted 0 Vicryl sutures that were laid in under direct vision, being careful to avoid injury to the bowel and then sequentially tied once they were all in place. The subcutaneous tissue was closed with Vicryl suture. The field was infiltrated with Naropin 0.2%. The skin was closed with running 4-0 Monocryl. The wound was dressed with Mastisol, Steri-Strips, and a dry dressing. The patient tolerated the procedure well without complications. The patient returned to recovery room in good condition. Dictated By: Jose Crowe MD WT: OP:TANIA/GUSTAVO/DUC PATIENT NAME: SHANTHI BURNHAM Conf#: [id number]/DID#: [id number] Authenticated and Edited by Jose Crowe MD On 09/06/18 11:06:17 AM at 1108 PATIENT NAME: CH[place]ASHANTHI [place]
[2024-10-08] MEDS ORDERED: ONDANSETRON 4 MG/2 ML VIAL ONE (07:32)
[2024-10-08] MEDS ORDERED: NA CHLORIDE 0.9% 1,000 ML ONE (07:32)
[2024-10-08 07:40] LABS: Absolute Lymphocytes (CBC) 1.6 K/uL (0.7-4.9); Absolute Monocytes 0.8 K/uL (0.1-1.3); Absolute Neutrophil 10.1 K/uL (1.8-8.0); Basophils % 0.2 % (0-1.3); Eosinophils % 0.2 % (0-4.4); Hematocrit 50.6 % (39.6-49.0); Hemoglobin 17.2 g/dL (13.6-17.9); Lymphocytes % 12.6 % (15.3-44.8); MCV 91.2 fL (80-100); MPV 9.2 fL (7.6-11.3); Monocytes % 6.7 % (3.3-12.3); Neutrophils % 80.3 % (41.7-73.7); Nucleated Red Blood Cells % 0.2 % (0-0); Platelets 199 thou/uL (152-406); RBC Red Blood Cell Count 5.54 M/uL (4.33-5.43); Red Cell Distribution Width 14.2 % (12.1-15.2)
[2024-10-08 07:52] LABS: Albumin 4.1 g/dL (3.4-5.0); Albumin/Globulin Ratio 1.2 (1.1-1.8); Anion Gap 11.4 mEq/L (5.0-15.0); Bilirubin Total 0.9 mg/dL (0.2-1.0); Globulin 3.4 g/dL (2.3-3.5); Potassium 3.4 mEq/L (3.5-5.1); Protein, Total 7.5 g/dL (6.4-8.2)
--- NOTE | 2024-10-08 08:43 | RAD REPORT ---
EXAMINATION: CT ABDOMEN AND PELVIS WITH CONTRAST CLINICAL INDICATION: Abdominal pain TECHNIQUE: CT abdomen and pelvis was performed, after the administration of 100 cc Isovue-300.. Sagit vernell and coronal reconstructions were obtained. One or more of the following dose reduction techniques were used: Automated exposure control, adjustment of the mA and kV according to patient si ze, and iterative reconstruction. Unless otherwise specified, incidental findings do not require dedicated imaging follow-up. PP2894. Oral contrast was not given which limits evaluation of bowel and appendix. COMPARISON: .2019 FINDINGS: Liver, spleen, pancreas, adrenals and kidneys appear unremarkable No evidence of diverticulitis. : IMPRESSION: No acute abnormality displayed
--- NOTE | 2024-10-08 08:52 | ER ---
Nurse's Notes [facility] Name: Joycelyn Lopes Age: 24 yrs Sex: Male : 2000 Arrival Date: 10/08/2024 Time: 07:01 Bed 14 Private MD: Diagnosis: Vomiting, dehydration, elevated LFTs Presentation: 10/08 07:18 Chief complaint: Patient states: "I went out drinking Tuesday and was hung over ss Tuesday. I felt better yesterday, but this morning I woke up feeling so bad. I can't hold anything down.". Coronavirus screen: Client denies travel out of the [place] in the last 14 days. Ebola Screen: Patient denies exposure to infectious person. Patient denies travel to an Ebola-affected area in the 21 days before illness onset. Initial Sepsis Screen: Does the patient meet any 2 criteria? No. Patient's initial sepsis screen is negative. Does the patient have a suspected source of infection? No. Patient's initial sepsis screen is negative. Risk Assessment: Do you want to hurt yourself or someone else? Patient reports no desire to harm self or others. Onset of symptoms was October 08, 2024. 07:18 Method Of Arrival: Ambulatory ss 07:18 Acuity: CHRISTOS 3 ss Historical: - Allergies: 07:15 Phenergan; ss - Home Meds: 07:15 Buspirone Oral [Active]; ss - PMHx: 07:15 ADD/ADHD; Depression; oppositional disruptive behavior; ss - PSHx: 07:15 hernia repair; ss - Immunization history:: Client reports having NOT received the Covid vaccine. - Infectious Disease History:: Denies. - Social history:: Smoking status: Patient denies any tobacco usage or history of. Screenin:45 [facility] ED Fall Risk Assessment (Adult) History of falling in the last 3 months, ph including since admission No falls in past 3 months (0 pts) Confusion or Disorientation No (0 pts) Intoxicated or Sedated No (0 pts) Impaired Gait No (0 pts) Mobility Assist Device Used No (0 pt) Altered Elimination No (0 pt) Score/Fall Risk Level 0 - 2 = Low Risk Oriented to surroundings, Maintained a safe environment, Hourly rounding (assess needs \\T\\ fall precautionary measures) done. Abuse screen: Denies threats or abuse. Denies injuries from another. Nutritional screening: No deficits noted. Tuberculosis screening: No symptoms or risk factors identified. Assessment: 07:45 General: Appears in no apparent distress. Behavior is calm, cooperative. Pain: Denies ph pain. Neuro: Level of Consciousness is awake, alert, obeys commands, Oriented to person, place, time, situation. Cardiovascular: Capillary refill < 3 seconds in bilateral fingers Patient's skin is warm and dry. Respiratory: Airway is patent Respiratory effort is even, unlabored, Respiratory pattern is regular, symmetrical. GI: Abdomen is non-distended, Reports nausea, vomiting, Patient currently denies abdominal pain, diarrhea. Derm: Skin is pink, warm \\T\\ dry. Vital Signs: 07:15 BP 116 / 98; Pulse 50; Resp 16; Temp 97.4(TE); Pulse Ox 100% ; Weight 90.72 kg; Height ss 5 ft. 10 in. ; 08:30 BP 118 / 87; Pulse 54; Resp 18; Pulse Ox 98% on R/A; ph 09:07 BP 112 / 89; Pulse 52; Resp 18; Temp 97.9; Pulse Ox 98% on R/A; ph 07:15 Body Mass Index 28.70 (90.72 kg, 177.8 cm) ED Course: 07:05 Patient arrived in ED. gm2 07:09 Bessie Morillo, RN is Primary Nurse. ph 07:09 Alicia Dale MD is Attending Physician. sp3 07:15 Arm band placed on right wrist. ss 07:19 Triage completed. ss 07:26 CBC with Diff Sent. ty 07:26 CMP Sent. ty 07:26 Lipase Sent. ty 07:26 Inserted saline lock: 22 gauge in right antecubital area, using aseptic technique. ph Blood collected. Flushed with 10 mL NS. 07:27 Initial lab(s) drawn, by me, sent to lab. ty 07:46 Patient has correct armband on for positive identification. Placed in gown. Bed in low ph position. Call light in reach. Side rails up X 1. Pulse ox on. NIBP on. Door closed. Noise minimized. Warm blanket given. Pillow given. Cool cloth applied. 08:[address] via wheelchair. ph 08:29 CT Abd/Pelvis - IV Contrast Only In Process Unspecified. EDMS 09:06 No provider procedures requiring assistance completed. IV discontinued, intact, ph bleeding controlled, No redness/swelling at site. Pressure dressing applied. Administered Medications: 07:44 Drug: NS 0.9% IV 1000 ml IV at 1 bolus Per protocol; to be given as a bolus over 60 ph minutes Route: IV; Rate: 1 bolus; Site: right antecubital; 08:19 Follow up: Response: No adverse reaction; IV Status: Completed infusion; IV Intake: ph 1000ml 07:45 Drug: Ondansetron IVP 4 mg IVP once; over 2 minutes Route: IVP; Site: right antecubital;ph 08:18 Follow up: Response: No adverse reaction; Nausea is decreased; Vomiting decreased ph Medication: 07:46 VIS not applicable for this client. ph Intake: 08:19 IV: 1000ml; Total: 1000ml. ph Outcome: 08:51 Discharge ordered by MD. woodward 09:07 Discharged to home ambulatory, ph 09:07 Condition: good 09:07 Discharge instructions given to patient, Instructed on discharge instructions, follow up and referral plans. medication usage, Demonstrated understanding of instructions, follow-up care, medications, Prescriptions given X 1, 09:08 Patient left the ED. ph Signatures: Dispatcher [employer] EDMS Tori Wilson RN RN Bessie Morillo RN RN Alicia Dale MD MD sp3 Mihaela Montoya 2 Luis Mcdowell
--- NOTE | 2024-10-08 08:52 | EDPHYS ---
Physician Documentation [facility] Name: Joycelyn Lopes Age: 24 yrs Sex: Male : 2000 Arrival Date: 10/08/2024 Time: 07:01 Bed 14 Private MD: ED Physician Alicia Dale HPI: 10/08 07:24 This 24 yrs old Male presents to ER via Ambulatory with complaints of Nausea/Vomiting. sp3 07:24 24-year-old male history of ADHD presents to the ED with chief complaint vomiting and sp3 feelings of being "hung over" after putting on Tuesday night 3 days ago. Patient that she was feeling little bit better yesterday but this morning woke up with vomiting without blood or mucus and feelings of dehydration. He reports decreased urine output. He denies any diarrhea, fever, chest pain, back pain, shortness of breath, significant abdominal pain, syncope, or any other signs or symptoms on ROS at this time.. Historical: - Allergies: 07:15 Phenergan; ss - Home Meds: 07:15 Buspirone Oral [Active]; ss - PMHx: 07:15 ADD/ADHD; Depression; oppositional disruptive behavior; ss - PSHx: 07:15 hernia repair; ss - Immunization history:: Client reports having NOT received the Covid vaccine. - Infectious Disease History:: Denies. - Social history:: Smoking status: Patient denies any tobacco usage or history of. ROS: 07:25 Constitutional: Negative for fever, chills, and weight loss, Eyes: Negative for injury, sp3 pain, redness, and discharge, ENT: Negative for injury, pain, and discharge, Neck: Negative for injury, pain, and swelling, Cardiovascular: Negative for chest pain, palpitations, and edema, Respiratory: Negative for shortness of breath, cough, wheezing, and pleuritic chest pain, Back: Negative for injury and pain, MS/Extremity: Negative for injury and deformity, Skin: Negative for injury, rash, and discoloration, Neuro: Negative for headache, weakness, numbness, tingling, and seizure, Psych: Negative for depression, anxiety, suicide ideation, homicidal ideation, and hallucinations, Allergy/Immunology: Negative for hives, rash, and allergies, Endocrine: Negative for neck swelling, polydipsia, polyuria, polyphagia, and marked weight changes, 07:25 All other systems are negative, Exam: 07:25 Constitutional: This is a well developed, well nourished patient who is awake, alert, sp3 and in no acute distress. Head/Face: Normocephalic, atraumatic. Eyes: Pupils equal round and reactive to light, extra-ocular motions intact. Lids and lashes normal. Conjunctiva and sclera are non-icteric and not injected. Cornea within normal limits. Periorbital areas with no swelling, redness, or edema. Neck: Trachea midline, no thyromegaly or masses palpated, and no cervical lymphadenopathy. Supple, full range of motion without nuchal rigidity, or vertebral point tenderness. No Meningismus. Chest/axilla: Normal chest wall appearance and motion. Nontender with no deformity. No lesions are appreciated. Cardiovascular: Regular rate and rhythm with a normal S1 and S2. No gallops, murmurs, or rubs. Normal PMI, no JVD. No pulse deficits. Respiratory: Lungs have equal breath sounds bilaterally, clear to auscultation and percussion. No rales, rhonchi or wheezes noted. No increased work of breathing, no retractions or nasal flaring. Back: No spinal tenderness. No costovertebral tenderness. Full range of motion. Skin: Warm, dry with normal turgor. Normal color with no rashes, no lesions, and no evidence of cellulitis. MS/ Extremity: Pulses equal, no cyanosis. Neurovascular intact. Full, normal range of motion. Neuro: Awake and alert, GCS 15, oriented to person, place, time, and situation. Cranial nerves II-XII grossly intact. Motor strength 5/5 in all extremities. Sensory grossly intact. Cerebellar exam normal. Normal gait. Psych: Awake, alert, with orientation to person, place and time. Behavior, mood, and affect are within normal limits. 07:25 Abdomen/GI: Mild crampy abdominal pain particularly epigastric. No peritoneal signs, rebound or guarding. Dry mucous membranes oral mucosa noted. Vital signs are normal with heart rate at 50., Vital Signs: 07:15 BP 116 / 98; Pulse 50; Resp 16; Temp 97.4(TE); Pulse Ox 100% ; Weight 90.72 kg; Height ss 5 ft. 10 in. ; 08:30 BP 118 / 87; Pulse 54; Resp 18; Pulse Ox 98% on R/A; ph 09:07 BP 112 / 89; Pulse 52; Resp 18; Temp 97.9; Pulse Ox 98% on R/A; ph 07:15 Body Mass Index 28.70 (90.72 kg, 177.8 cm) ss MDM: 07:09 Medical Screening Exam initiated sp3 07:26 Data reviewed: vital signs, nurses notes, lab test result(s). ED course: 24-year-old sp3 male with PMH above now with vomiting and crampy abdominal pain after drinking episode. Will obtain routine labs, lipase and administer IV fluids and ondansetron IV. Differential diagnosis includes gastritis, dehydration, pancreatitis, biliary pathology, other colonic pathology, among others. I am not highly suspicious of vascular pathology, cardiovascular pathology, pathology, sepsis, shock or any other critical process.. 08:00 ED course: Reviewed labs which are within normal range except for AST ALT. Patient sp3 states he is not a heavy drinker and proximately 3 [facility] had biometric workup where he had normal liver function. I have advised him to recheck his labs within the next 4 to 6 weeks. Patient is feeling significantly better after IV fluids and ondansetron. Patient has no pain whatsoever and vital signs remain normal. We will image liver with CT abdomen and discharge if negative for continued outpatient follow-up/workup.. 08:50 ED course: CT demonstrates no acute findings and normal liver appearance. Will sp3 discharge patient home with liver precautions and follow-up at this time.. 10/08 07:10 Order name: CBC with Diff; Complete Time: 07:54 sp3 10/08 07:10 Order name: CMP; Complete Time: 07:54 sp3 10/08 07:10 Order name: Lipase; Complete Time: 07:54 3 10/08 08:02 Order name: CT Abd/Pelvis - IV Contrast Only; Complete Time: 08:50 sp3 10/08 07:10 Order name: IV Saline Lock; Complete Time: 07:26 sp3 10/08 07:10 Order name: Labs collected and sent; Complete Time: 07:26 sp3 Administered Medications: 07:44 Drug: NS 0.9% IV 1000 ml IV at 1 bolus Per protocol; to be given as a bolus over 60 ph minutes Route: IV; Rate: 1 bolus; Site: right antecubital; 08:19 Follow up: Response: No adverse reaction; IV Status: Completed infusion; IV Intake: ph 1000ml 07:45 Drug: Ondansetron IVP 4 mg IVP once; over 2 minutes Route: IVP; Site: right antecubital;ph 08:18 Follow up: Response: No adverse reaction; Nausea is decreased; Vomiting decreased ph Disposition Summary: 10/08/24 08:51 Discharge Ordered Notes: Location: Home sp3 Condition: Stable sp3 Diagnosis - Vomiting, dehydration, elevated LFTs sp3 Followup: sp3 - With: Private Physician - When: Upon discharge from the Emergency Department - Reason: Continuance of care Discharge Instructions: - Discharge Summary Sheet sp3 - Vomiting, Adult sp3 - Liver Function Tests sp3 Forms: - Work release form ph - Medication Reconciliation Form sp3 - Antibiotic Education sp3 - Prescription Opioid Use sp3 - Patient Portal Instructions sp3 - Leadership Thank You Letter sp3 Prescriptions: - ondansetron 8 mg Oral Tablet,disintegrating - take 1 tablet ORAL route every 12 hours; 20 tablet; Refills: 0, Product sp3 Selection Permitted Signatures: Dispatcher [employer] Tori Rizo RN RN ss Hall, Patricia, RN RN ph Patel, Setul, MD MD sp3 Corrections: (The following items were deleted from the chart) 08:03 08:00 ED course: Reviewed labs which are within normal range except for AST ALT. sp3 Patient states he is not a heavy drinker and proximately 3 weeks ago [facility] he had biometric workup where he had normal liver function. I have advised him to recheck his labs within the next 4 to 6 weeks. Patient is feeling significantly better after IV fluids and ondansetron. Patient has no pain whatsoever and vital signs remain normal. Imaging not indicated at this time. We will safely discharge patient home with continued outpatient workup/follow-up.. sp3 08:03 08:03 Abdomen Pelvis W Con+CT.RAD.BRZ ordered. EDMS EDMS
[2024-10-08 09:18] VITALS: O2SAT 98
[2024-10-08 09:19] VITALS: BP 112/89; TEMP 97.9
== END 2024-10-08 09:08 | disposition home or self-care (01) ==
LOC: ER 07:01
DX: E86.0 Dehydration (principal); R79.89 Other specified abnormal findings of blood chemistry
CPT/HCPCS: 36415; 74177; 80053; 83690; 85025; 96361; 96374; 99285; J2405; J7030; Q9967

== ENCOUNTER 2025-04-29 03:00 | Emergency (ER) | payer BC ==
--- OUTSIDE RECORDS SUMMARY | 2025-04-29 03:03 | XMS REPORT | Continuity of Care Document ---
Author Name Unknown Address [address] [facility] [address] [place] [address] [facility] Address [address] [facility] [place] [address] Care Team Providers Care Machine Stonecutter Name Role Phone Leon Guadalupe Primary Care Physician [phone] Doctor Unassigned, [place] Attending Clinician U ADE Salazar Attending Clinician Unavailable Ade Van MD Attending Clinician [phone] Doctor Unassigned, [place] Attending Clinician U HOANG Haines Attending Clinician Unavailable Hoang Mc Attending Clinician [phone] Miles Rincon MD Attending Clinician [phone] RAMOS GARG Attending Clinician Unavailable TAZ PATINO Attending Clinician Unavailable Taz Alexander Attending Clinician [phone] JAMI LOOMIS Attending Clinician Unavailable Only, Ang Db Test Attending Clinician UnavailJami Blount PA-C Attending Clinician Destiny COLLINS, Pema Lin Attending Clinician Unavailab Torey HUFFMAN, Nette Attending Clinician [phone] NETTE HEAD Attending Clinician Unavailable Erin Encinas Attending Clinician [phone] Jenna HUFFMAN, Nader Hooker Attending Clinician [phone] HOANG NAPIER Admitting Clinician Unavailable Payers Payer Name Policy Type Policy Number Effective Date Expirati on Date Source [facility] [id number] 2016 00:00:00 Problems Condition Name Condition Details Condition Category Status Onset Date Resolution Date Last Treatment Date Treating Clinician Comments Source No known active problems No known active problems Disease [facility] Allergies, Adverse Reactions, Alerts Allergy Name Allergy Type Status Severity Reaction(s) Onset Date Inactive Date Treating Clinician Comments Source No Known Allergie s DA Active U 08-30 00:00: 00 [facility] NO KNOWN ALLERGIE S Drug Class Active [facility] Social History Social Habit Start Date Stop Date Quantity Comments Source Sexual orientation U [facility] Exposure to SARS-CoV-2 (event) 2022-06-26 00:00:00 2022-07-06 19:56:00 Not sure [facility] History of Social function 2021-09-29 00:00:00 2021-09-29 00:00:00 [facility] Tobacco use and exposure 2019-05-28 00:00:00 2019-05-28 00:00:00 Smokeless tobacco non-user [facility] Sex assigned at 2000 00:00:00 2000 00:00:00 [facility] Smoking Status Start Date Stop Date Source Never smoked tobacco [facility] Medications Ordered Medication Name Filled Medication Name Start Date Stop Date Current Medication? Ordering Clinician Indication Dosage Frequency Signature (SIG) Comments Components Source clotrimazol e 1 % ointment 2021-07 00:00: 00 Yes [id number] 1{appli cator} Apply 1 Applicator to area(s) 2 (two) times daily. [facility] mupirocin 2 % ointment 2021-07 00:00: 00 Yes [id number] Apply to area(s) 3 (three) times daily. [facility] clindamycin 300 mg capsule 2021-07 00:00: 00 07-17 05:59 :00 No [id number] 300mg Take 1 capsule by mouth 4 (four) times daily for 10 days. [facility] fluoxetine HCl (FLUOXETINE ORAL) 08-04 00:15: 50 Yes Take by mouth. [facility] traZODone 50 mg tablet 08-04 00:15: 50 Yes 50mg Take 50 mg by mouth at bedtime as needed for Insomnia. [facility] FLUoxetine 20 mg capsule 08-04 00:00: 00 Yes [id number] 20mg Take 1 capsule by mouth daily. [facility] VYVANSE 40 mg capsule 02-16 00:00: 00 Yes TAKE ONE CAPSULE BY MOUTH EVERY MORNING [facility] Vital Signs Vital Name Observation Time Observation Value Comments S ource Systolic blood pressure 2022-07-07 02:00:00 120 mm[Hg] [facility] Diastolic blood pressure 2022-07-07 02:00:00 77 mm[Hg] [facility] Heart rate 2022-07-07 02:00:00 88 /min [facility] Body temperature 2022-07-07 02:00:00 37 Zahida [facility] Respiratory rate 2022-07-07 02:00:00 16 /min [facility] Body height 2022-07-07 02:00:00 175.3 cm [facility] Body weight 2022-07-07 02:00:00 82.555 kg [facility] BMI 2022-07-07 02:00:00 26.88 kg/m2 [facility] Oxygen saturation in Arterial blood by Pulse oximetry 2022-07-07 02:00:00 99 /min [facility] Systolic blood pressure 2021-10-20 18:00:00 123 mm[Hg] [facility] Diastolic blood pressure 2021-10-20 18:00:00 74 mm[Hg] [facility] Heart rate 2021-10-20 18:00:00 68 /min [facility] Body height 2021-10-20 18:00:00 175.3 cm [facility] Body weight 2021-10-20 18:00:00 74.844 kg [facility] BMI 2021-10-20 18:00:00 24.37 kg/m2 [facility] Body mass index (BMI) [Percentile] Per age and sex 2021-10-20 18:00:00 71.11 % [facility] Systolic blood pressure 2022-07-07 02:00:00 120 mm[Hg] [facility] Diastolic blood pressure 2022-07-07 02:00:00 77 mm[Hg] [facility] Heart rate 2022-07-07 02:00:00 88 /min [facility] Body temperature 2022-07-07 02:00:00 37 Zahida [facility] Respiratory rate 2022-07-07 02:00:00 16 /min [facility] Body height 2022-07-07 02:00:00 175.3 cm [facility] Body weight 2022-07-07 02:00:00 82.555 kg [facility] BMI 2022-07-07 02:00:00 26.88 kg/m2 [facility] Oxygen saturation in Arterial blood by Pulse oximetry 2022-07-07 02:00:00 99 /min [facility] Procedures Procedure Date / Time Performed Performing Clinicia n Source CONSENT/REFUSAL FOR DIAGNOSIS AND TREATMENT 2022-07-07 01:28:38 Doctor Unassigned, [place] [facility] EXTERNAL PROVIDER RECORDS 2021-11-25 05:01:00 Doctor Unassigned, [place] [facility] EXTERNAL PROVIDER RECORDS 2021-11-17 05:01:00 Doctor Unassigned, [place] [facility] MR SHOULDER RIGHT WO CONTRAST 2021-11-12 14:30:00 Hoang Napier [facility] ASSIGNMENT OF BENEFITS 2021-11-12 13:41:36 Docto r Unassigned, [place] [facility] REFERRAL- REQUEST/RESPONSE 2021-10-29 05:01:00 Doctor Unassigned, [place] [facility] Encounters Start Date/Time End Date/Time Encounter Type Admission Type Attending [facility] Care Department Encounter ID Source 2021-05-09 19:11:46 Emergency [facility] [id number] [facility] 2017-04-08 00:00:00 2024-08-25 03:37:29 Orders Only Doctor Unassigned, [place] Doctor Unassigned, [place] [facility] 1.2.840.114 350.1.13.10 4.2.7.2.686 [id number] [facility] 2023-08-16 07:43:21 2023-08-16 07:43:21 Outpatient [facility] [id number] Josestacey Blackmon 2023-01-28 13:36:25 2023-01-28 13:36:25 Outpatient [facility] [id number] Josestacey Blackmon 2022-07-06 20:03:00 2022-07-06 20:47:00 Emergency X ADE VAN [facility] E[facility] [id number] [facility] 2022-07-06 20:03:00 2022-07-06 20:47:00 Emergency Ade Van [facility] 1..840.114 350.1.13.10 4.2.7.2.686 [id number] [facility] 2021-11-25 00:00:00 2021-11-25 00:00:00 Orders Only Doctor Unassigned, [place] [facility] 1.2.840.114 350.1.13.10 4.2.7.2.686 [id number] [facility] 2021-11-17 00:00:00 2021-11-17 00:00:00 Orders Only Doctor Unassigned, [place] [facility] 1.2.840.114 350.1.13.10 4.2.7.2.686 [id number] [facility] 2021-11-12 08:43:56 2021-11-12 23:59:00 Outpatient R KARTHIKEYAN HOANG [facility] [id number] [facility] 2021-11-12 08:43:56 2021-11-12 23:59:00 Hospital Encounter Hoang Napier [facility] 1.2.840.114 350.1.13.10 4.2.7.2.686 [id number] [facility] 2021-11-12 00:00:00 2021-11-12 00:00:00 Orders Only Doctor Unassigned, [place] [facility] 1.2840.114 350.1.13.10 4.2.7.2.686 [id number] [facility] 2021-11-12 00:00:00 2021-11-12 00:00:00 Telephone Miles Rincon [facility] 1.2840.114 350.1.13.10 4.2.7.2.686 [id number] [facility] 2021-11-04 00:00:00 2021-11-04 00:00:00 Telephone Karthikeyan [facility] 1.2840.114 350.1.13.10 4.2.7.2.686 [id number] [facility] 2021-10-29 00:00:00 2021-10-29 00:00:00 Orders Only Doctor Unassigned, [place] [facility] 1.2840.114 350.1.13.10 4.2.7.2.686 [id number] [facility] 2021-10-28 00:00:00 2021-10-28 00:00:00 Telephone Karthikeyan [facility] 1..840.114 350.1.13.10 4.2.7.2.686 [id number] [facility] 2021-10-20 13:15:00 2021-10-20 14:13:28 Outpatient R KARTHIKEYAN [facility] [id number] [facility] 2021-10-20 13:15:00 2021-10-20 13:30:00 Office Visit Karthikeyan [facility] 1..840.114 350.1.13.10 4.2.7.2.686 [id number] [facility] 2021-10-20 13:15:00 2021-10-20 13:15:00 Outpatient R KARTHIKEYAN [facility] [id number] [facility] 2021-09-29 14:10:00 2021-09-29 23:59:00 Outpatient R KARTHIKEYAN [facility] [id number] [facility] 2021-09-29 14:30:00 2021-09-29 15:00:00 Office Visit Karthikeyan [facility] 1..840.114 350.1.13.10 4.2.7.2.686 [id number] [facility] 2021-09-29 14:30:00 2021-09-29 14:37:47 Outpatient R KARTHIKEYAN [facility] [id number] [facility] 2021-09-22 00:00:00 2021-09-22 00:00:00 Orders Only Doctor Unassigned, [place] [facility] 1..840.114 350.1.13.10 4.2.7.2.686 [id number] [facility] 2021-07-11 11:00:00 2021-07-11 11:00:00 Outpatient R BRITANYRAMOS [facility] [id number] [facility] 2021-07-08 21:22:00 2021-07-08 22:03:00 Emergency X TAZ PATINO [facility] E[facility] [id number] [facility] 2021-07-08 21:22:00 2021-07-08 22:03:00 Emergency Taz Patino [facility] 1.2840.114 350.1.13.10 4.2.7.2.686 [id number] [facility] 2021-07-05 14:45:00 2021-07-05 15:51:29 Outpatient R VLADISLAV [facility] [id number] [facility] 2021-07-05 14:45:00 2021-07-05 15:00:00 Laboratory Only Only, Ang Db Test Vladislav [facility] 1.2.840.114 350.1.13.10 4.2.7.2.686 [id number] [facility] 2021-04-06 00:00:00 2021-04-06 00:00:00 Letter (Out) Pema Dixon [facility] 1..84.114 350.1.13.10 4.2.7.2.686 [id number] [facility] 2021-04-05 13:17:46 2021-04-05 13:32:46 Laboratory Only Only, Ang Db Test Kirby [facility] 1.284.114 350.1.13.10 4.2.7.2.686 [id number] [facility] 2021-04-05 13:30:00 2021-04-05 13:30:00 Outpatient R NETTE HEAD [facility] [id number] [facility] 2021-04-05 00:00:00 2021-04-05 00:00:00 Orders Only Doctor Unassigned, [place] [facility] 1.2.840.114 350.1.13.10 4.2.7.2.686 [id number] [facility] 2021-03-30 16:46:16 2021-03-30 17:01:16 Laboratory Only Only, Ang Db [facility] 1.2840.114 350.1.13.10 4.2.7.2.686 [id number] [facility] 2021-03-30 17:00:00 2021-03-30 17:00:00 Outpatient R [facility] [id number] [facility] 2021-03-30 00:00:00 2021-03-30 00:00:00 Letter (Out) Doctor Unassigned, [place] [facility] 1.2.840.114 350.1.13.10 4.2.7.2.686 [id number] [facility] 2021-03-30 00:00:00 2021-03-30 00:00:00 Letter (Out) Doctor Unassigned, [place] [facility] 1.2.840.114 350.1.13.10 4.2.7.2.686 [id number] [facility] 2020-08-03 22:33:00 2020-08-04 02:43:00 Emergency Jenna Lorton [facility] 1.2.840.114 350.1.13.10 4.2.7.2.686 [id number] 2020-08-03 22:33:00 2020-08-04 02:43:00 Emergency Jenna Lorton [facility] 1.2.840.114 350.1.13.10 4.2.7.2.686 [id number] [facility] Results Test Description Test Time Test Comments Results Result Co mments Source SURGICAL SPECIMENS 2018-09-06 07:45:00 RUN DATE: 09/06/18 [facility] *LIVE* PAGE 1 RUN TIME: 744 Specimen Inquiry RUN USER: INTERFACE PAT IENT: SHANTHI BURNHAM LOC: [facility]SELLU U #: [id number] AGE/SX: 17/M ROOM: RE09/01/18[facility] DR: Jose Crowe MD : 02 BED: DIS: STATUS: RUBÉN [facility] TLOC: SPEC #: [id number] RECD: 09/01/18 STATUS: RAVI RERula #: [id number] LOLA: 09/01/[address]: Jose Crowe MD ENTERED: 09/05/18 SP TYPE: SURG SPEC OTHR DR: Leon Guadalupe MD ORDERED: LEVEL 4 CODES: [id number] - SOFT TISSUES, N COPIES TO: Leon Guadalupe MD [address] [place] [address] Jose Crowe MD [address] [place] [address] [address] [place] [address] PROCEDURES: LEVEL 4 (Incomplete) TISSUES: 1. SOFT [...] CONTINUED ON NEXT PAGE RUN DATE: 09/06/18 [facility] *LIVE* PAGE 2 RUN TIME: 45 Specimen Inquiry RUN USER: INTERFACE TANNER Hawley #: [id number] PATIENT: SHANTHI BURNHAM #[id number] (Continued)-------- -------- Signed SIGNATURE ON FILE Jose Ferguson MD 09/06/18 0745 END OF REPORT PROTHROMBIN [id number] 08:09:00* Test Item Value Reference Range Interpretation [facility] PATIENT (test code = [...] Infarction (to prevent recurrent infarct). THROMBOPLASTIN TIME [id number] 08:09:00* Test Item Value Reference Range Interpretation Comme [facility] THROMBOPLASTIN TIME PARTIAL (test code = PTT) 31.6 Seconds 25.0-39.5 N Therapeutic Rang e: 61.8-83.8 Sec Effective 08/08/2013 Notes Date/Time Note Provider Source 2018-09-05 17:36:00 [id number] [address] PATIENT NAME: SHANTHI BURNHAM ADMIT DATE: 09/01/18 ACCOUNT NO: [id number] ROOM NO: AGE: 17 REPORT TYPE: OPERATIVE REPORT SEX: M ADMITTING PHYSICIAN: ATTENDING PHYSICIAN:Jose Crowe MD OPERATION DATE: 09/01/2018 PREOPERATIVE DIAGNOSIS: Congenital epigastric hernia. POSTOPERATIVE DIAGNOSIS: Congenital epigastric hernia. PROCEDURE: Repair of a congenital epigastric hernia. SURGEON: Jose Crowe MD YARD CLERK: Siri Hewitt. INDICATIONS: Shanthi is a 17-year-old [...] WT: OP:TANIA/GUSTAVO/DUC PATIENT NAME: SHANTHI BURNHAM Conf#: [id number]/DID#: [id number] Authenticated and Edited by Jose Crowe MD On 09/06/18 11:06:17 AM at 1108 PATIENT NAME: CHACHASHANTHI [facility]
[2025-04-29] MEDS ORDERED: KETOROLAC 30 MG/ML INJ ONE (03:46)
[2025-04-29] MEDS ORDERED: METOCLOPRAMIDE 10 MG/2mL INJ ONE (03:46)
[2025-04-29] MEDS ORDERED: ONDANSETRON 4 MG/2 ML VIAL ONE (03:46)
[2025-04-29] MEDS ORDERED: FAMOTIDINE 20 MG/2 ML VIAL IV ONE (03:47)
[2025-04-29] MEDS ORDERED: NA CHLORIDE 0.9% 2,000 ML ONE (03:47)
[2025-04-29] MEDS ORDERED: PANTOPRAZOLE 40 MG INJ ONE (03:47)
[2025-04-29 04:12] LABS: Absolute Lymphocytes (CBC) 1.9 K/uL (0.7-4.9); Hematocrit 47.2 % (39.6-49.0); Hemoglobin 16.4 g/dL (13.6-17.9); MCH 30.5 pg (27.0-35.0); MCHC 34.6 g/dL (32.0-36.0); MCV 88.2 fL (80-100); MPV 9.6 fL (7.6-11.3); Nucleated RBC Absolute Count 0.0 (0-0); Nucleated Red Blood Cells % 0.1 % (0-0); RBC Red Blood Cell Count 5.36 M/uL (4.33-5.43); White Blood Count 7.90 thou/uL (4.3-10.9)
[2025-04-29 04:28] LABS: ALT/SGPT 37.0 U/L (16-61); AST/SGOT 13.0 U/L (15-37); Albumin 3.9 g/dL (3.4-5.0); Albumin/Globulin Ratio 1.0 (1.1-1.8); Alkaline Phosphatase 67.0 U/L (45-117); Anion Gap 10.5 mEq/L (5.0-15.0); BUN Blood Urea Nitrogen 12.0 mg/dL (7-18); Globulin 3.8 g/dL (2.3-3.5); Glucose Level 122.0 mg/dL (74-106); Lipase 35.0 U/L (13-75); Potassium 3.5 mEq/L (3.5-5.1)
[2025-04-29 05:17] LABS: Urine Microscopic Reflex YN NO UMIC
[2025-04-29 05:29] LABS: METHAMPHETAM NEGATIVE (NEGATIVE); THC Cannibis NEGATIVE (NEGATIVE)
--- NOTE | 2025-04-29 06:02 | RAD REPORT ---
EXAM DESCRIPTION: Abdomen Pelvis W Contrast RadLex: CT ABDOMEN PELVIS WITH IV CONTRAST CLINICAL HISTORY: 24 years Male; ABD PAIN; IV ONLY Bed Name: 6 TECHNIQUE: CT of the abdomen and pelvis [with] intravenous contrast. All CT scans at this facility use dose modulation, iterative reconstruction, and/or weight based dosi ng when appropriate to reduce radiation dose to as low as reasonably achievable. COMPARISON: CT abdomen pelvis 10/08/2024. FINDINGS: Lower thorax: Lung bases are clear Abdomen: Stomach: Within normal limits Liver: No focal lesions. No intrahepatic ductal distention. Gallbladder: Nondistended Pancreas: Within normal limits Spleen: Within normal limits Right kidney: No hydronephrosis. No focal lesion. Left kidney: No hydronephrosis. No focal lesion. Adrenal glands: Within normal limits Vascular structures: Within normal limits Nodes: No lymphadenopathy by size criteria Pelvis: Small bowel: No significant distention. Fluid-filled contents Appendix: Within normal limits Colon: No distention or acute pericolonic edema. Fluid filled contents. Peritoneum: No free intraperitoneal fluid or air. Bones: No acute bone findings. Bladder: Unremarkable. Reproductive organs: No acute findings. IMPRESSION: 1. Fluid-filled small and large bowel contents, can be seen in setting of diarrheal illness. 2. Otherwise no acute abdominopelvic findings. Electronically signed by: Deandre Lisa MD 04/29/2025 05:57 AM CDT TYG Due to temporary technical issues with the [employer] reporting system, reports are being kika d by the in-house radiologist without review as a courtesy to ensure prompt reporting the interpreting radiologist is fully responsible for the content of the report. Transcribed Date/Time: 04/29/2025 6:02 AM
--- NOTE | 2025-04-29 06:13 | ER ---
Nurse's Notes [facility] Name: Joycelyn Lopes Age: 24 yrs Sex: Male : 2000 Arrival Date: 04/29/2025 Time: 03:00 Bed 6 Private MD: Diagnosis: Acute viral gastroenteritis;Acute nausea vomiting and diarrhea Presentation: 04/29 03:08 Chief complaint: Patient states: CONSTIPATION, NAUSEA, AND VOMITING . BURNING SENSATION ha1 IN THE STOMACH. 03:08 Coronavirus screen: Client denies travel out of the [place] in the last 14 days. Ebola ha1 Screen: No symptoms or risks identified at this time. Initial Sepsis Screen: Does the patient meet any 2 criteria? No. Patient's initial sepsis screen is negative. Does the patient have a suspected source of infection? No. Patient's initial sepsis screen is negative. Risk Assessment: Do you want to hurt yourself or someone else? Patient reports no desire to harm self or others. Onset of symptoms was April 29, 2025. 03:08 Method Of Arrival: Ambulatory ha1 03:08 Acuity: CHRISTOS 3 ha1 Triage Assessment: 03:08 General: Appears uncomfortable, Behavior is calm, cooperative. Pain: Complains of pain ha1 in abdomen Pain currently is 10 out of 10 on a pain scale. Quality of pain is described as burning. Neuro: Level of Consciousness is awake, alert, obeys commands, Oriented to person, place, time, situation. Cardiovascular: Capillary refill < 3 seconds Patient's skin is warm and dry. Respiratory: Airway is patent Respiratory effort is even, unlabored, Respiratory pattern is regular, symmetrical. GI: Abdomen is round non-distended, Reports lower abdominal pain, upper abdominal pain, constipation, cramping, nausea, vomiting. Derm: Skin is pink, warm \T\ dry. Musculoskeletal: Circulation, motion, and sensation intact. Range of motion: intact in all extremities. Historical: - Allergies: 03:08 Phenergan; ha1 - PMHx: 03:08 ADD/ADHD; Depression; Hernia; oppositional disruptive behavior; ha1 - PSHx: 03:08 hernia repair; ha1 - Immunization history:: Adult Immunizations up to date. - Infectious Disease History:: Denies. - Social history:: Smoking status: Reported history of juuling and/or vaping. - Family history:: not pertinent. Screenin:57 [facility] ED Fall Risk Assessment (Adult) History of falling in the last 3 months, kd3 including since admission No falls in past 3 months (0 pts) Confusion or Disorientation No (0 pts) Intoxicated or Sedated No (0 pts) Impaired Gait No (0 pts) Mobility Assist Device Used No (0 pt) Altered Elimination No (0 pt) Score/Fall Risk Level 0 - 2 = Low Risk Maintained a safe environment. Abuse screen: Denies threats or abuse. Denies injuries from another. Nutritional screening: No deficits noted. Tuberculosis screening: No symptoms or risk factors identified. Assessment: 04:57 General: Appears in no apparent distress. Behavior is calm, cooperative. Neuro: Level kd3 of Consciousness is awake, alert, obeys commands, Oriented to person, place, time, situation. Cardiovascular: Capillary refill < 3 seconds Patient's skin is warm and dry. Respiratory: Airway is patent Trachea midline Respiratory effort is even, unlabored, Respiratory pattern is regular, symmetrical. GI: Bowel sounds present X 4 quads. Abd is soft X 4 quads. 05:11 General: Appears in no apparent distress. Behavior is cooperative. Neuro: Level of kd3 Consciousness is awake, alert, obeys commands, Oriented to person, place, time, situation. Cardiovascular: Capillary refill < 3 seconds Patient's skin is warm and dry. Respiratory: Airway is patent Trachea midline Respiratory effort is even, unlabored, Respiratory pattern is regular, symmetrical. GI: Bowel sounds present X 4 quads. Abd is soft X 4 quads. 06:12 General: Appears in no apparent distress. Behavior is agitated, uncooperative, Pt kd3 refuses blood pressure check before discharge. Pt is highly agitated and angry. Pt is cursing and pulled his own IV out of his arm. . Neuro: Level of Consciousness is awake, alert, obeys commands, Oriented to person, place, time, situation. Cardiovascular: Capillary refill < 3 seconds Patient's skin is warm and dry. Respiratory: Airway is patent Trachea midline Respiratory effort is even, unlabored, Respiratory pattern is regular, symmetrical. Vital Signs: 03:08 BP 125 / 87; Pulse 72; Resp 18 S; Temp 97.6; Pulse Ox 100% on R/A; Weight 89.36 kg; ha1 Height 5 ft. 10 in. ; Pain 10/10; 04:00 BP 131 / 68; Pulse 77; Resp 16; Pulse Ox 99% on R/A; ss12 05:10 BP 143 / 82; Pulse 73; Resp 16; Pulse Ox 98% on R/A; kd3 03:08 Body Mass Index 28.27 (89.36 kg, 177.8 cm) ha1 03:08 Pain Scale: Adult ha1 [place] Coma Score: 04/30 00:56 Eye Response: spontaneous(4). Motor Response: obeys commands(6). Verbal Response: sp4 oriented(5). Total: 15. ED Course: 04/29 03:04 Patient arrived in ED. gm2 03:14 Sidney Orozco MD is Attending Physician. sp4 03:20 Inserted saline lock: 20 gauge in right antecubital area, using aseptic technique. ha1 Blood collected. Flushed with 10 mL NS. 03:30 Triage completed. ha1 04:17 CMP Sent. ha1 04:17 Lipase Sent. ha1 04:57 Steffany Badillo, DENNIS is Primary Nurse. kd3 04:58 Arm band placed on right wrist. kd3 04:58 Patient has correct armband on for positive identification. Provided Education on: CT kd3 scan . 05:00 CT Abd/Pelvis - IV Contrast Only In Process Unspecified. EDMS 05:35 No provider procedures requiring assistance completed. ss12 06:13 IV discontinued, intact, bleeding controlled, No redness/swelling at site. Pressure kd3 dressing applied. Administered Medications: 03:58 Drug: Ondansetron IVP 8 mg IVP once; over 2 minutes Route: IVP; Site: right antecubital;ha1 04:30 Follow up: Response: No adverse reaction ss12 04:00 Drug: Ketorolac IVP 30 mg IVP once Route: IVP; Site: right antecubital; ha1 04:30 Follow up: Response: No adverse reaction ss12 04:00 Drug: NS 0.9% IV 1000 ml IV at 1000 ml once; to be given as a bolus over 60 minutes ha1 Route: IV; Rate: 1000 ml; Site: right antecubital; 05:28 Follow up: IV Status: Completed infusion; IV Intake: 1000ml ss12 04:00 Drug: NS 0.9% IV 1000 ml IV at 1000 ml once; to be given as a bolus over 60 minutes ha1 Route: IV; Rate: 1000 ml; Site: right antecubital; 05:28 Follow up: IV Status: Completed infusion; IV Intake: 1000ml ss12 04:02 Drug: metoCLOPramide IVP 10 mg IVP once; over 1 to 2 minutes Route: IVP; Site: right ha1 antecubital; 04:30 Follow up: Response: No adverse reaction ss12 04:05 Drug: Famotidine IVP 20 mg IVP once; dilute with 10 mL 0.9% NaCl; give over 2 minutes ha1 Route: IVP; Site: right antecubital; 04:30 Follow up: Response: No adverse reaction ss12 04:07 Drug: Pantoprazole IVP 40 mg IVP once Route: IVP; Site: right antecubital; ha1 05:27 Follow up: Response: No adverse reaction ss12 04:21 Not Given (Patient Refused): [id number] mg PO once ha1 Medication: 04:58 VIS not applicable for this client. kd3 Intake: 05:28 IV: 1000ml; Total: 1000ml. ss12 05:28 IV: 1000ml; Total: 2000ml. ss12 Outcome: 06:11 Discharged to home ambulatory, kd3 06:11 Condition: stable 06:12 Discharge ordered by . sp4 06:37 Discharge instructions given to patient, family, Instructed on discharge instructions, kd3 follow up and referral plans. medication usage, Demonstrated understanding of instructions, follow-up care, medications, Prescriptions given X 3, 06:38 Patient left the ED. kd3 Signatures: Dispatcher [employer] EDSteffany Dudley RN RN kd3 Carmen Castorena RN RN ha1 Sidney Orozco MD MD sp4 Mihaela Montoya 2 Alicia Vargas RN RN ss12
--- NOTE | 2025-04-29 06:13 | EDPHYS ---
Physician Documentation [facility] Name: Joycelyn Lopes Age: 24 yrs Sex: Male : 2000 Arrival Date: 04/29/2025 Time: 03:00 Bed 6 Private MD: ED Physician Sidney Orozco HPI: 04/29 03:14 This 24 yrs old Other Race Male presents to ER via Unassigned with complaints of sp4 Abdominal Pain, Nausea/Vomiting. 04/30 00:56 24-year-old male presents with complaint of acute abdominal pain discomfort nausea sp4 vomiting.. Historical: - Allergies: 04/29 03:08 Phenergan; ha1 - PMHx: 03:08 ADD/ADHD; Depression; Hernia; oppositional disruptive behavior; ha1 - PSHx: 03:08 hernia repair; ha1 - Immunization history:: Adult Immunizations up to date. - Infectious Disease History:: Denies. - Social history:: Smoking status: Reported history of juuling and/or vaping. - Family history:: not pertinent. ROS: 04/30 00:56 Constitutional: Negative for fever, chills, and weight loss, positive for acute sp4 abdominal discomfort cramps pain nausea vomiting All other systems are negative, Exam: 00:56 Constitutional: This is a well developed, well nourished patient who is awake, alert, sp4 appears anxious and irritable. Head/Face: Normocephalic, atraumatic. Eyes: Pupils equal round and reactive to light, extra-ocular motions intact. Lids and lashes normal. Conjunctiva and sclera are not injected. Cornea within normal limits. Periorbital areas with no swelling, redness, or edema. ENT: Nares patent. No nasal discharge, no septal abnormalities noted. Tympanic membranes are normal and external auditory canals are clear. Oropharynx with no redness, swelling, or masses, exudates, or evidence of obstruction, uvula midline. Mucous membranes moist. Neck: Trachea midline, no thyromegaly or masses palpated, and no cervical lymphadenopathy. Supple, full range of motion without nuchal rigidity, or vertebral point tenderness. Chest/axilla: Normal chest wall appearance and motion. Nontender with no deformity. No lesions are appreciated. Cardiovascular: Regular rate and rhythm with a normal S1 and S2. No gallops, murmurs, or rubs. No pulse deficits. Respiratory: Lungs have equal breath sounds bilaterally, clear to auscultation and percussion. No rales, rhonchi or wheezes noted. No increased work of breathing, no retractions or nasal flaring. Abdomen/GI: Soft, with normal bowel sounds. No distension or tympany. No guarding or rebound. No evidence of tenderness throughout. Back: No spinal tenderness. No costovertebral tenderness. Skin: Warm, dry with normal turgor. Normal color with no rashes, no lesions, and no evidence of cellulitis. MS/ Extremity: Pulses equal, no cyanosis. Neurovascular intact. Full, normal range of motion. Neuro: Awake and alert, GCS 15, oriented to person, place, time, and situation. Cranial nerves II-XII grossly intact. Motor strength 5/5 in all extremities. Sensory grossly intact. Psych: Awake, alert, with orientation to person, place and time. Behavior, mood, and affect are within normal limits Vital Signs: 04/29 03:08 BP 125 / 87; Pulse 72; Resp 18 S; Temp 97.6; Pulse Ox 100% on R/A; Weight 89.36 kg; ha1 Height 5 ft. 10 in. ; Pain 10/10; 04:00 BP 131 / 68; Pulse 77; Resp 16; Pulse Ox 99% on R/A; ss12 05:10 BP 143 / 82; Pulse 73; Resp 16; Pulse Ox 98% on R/A; kd3 03:08 Body Mass Index 28.27 (89.36 kg, 177.8 cm) ha1 03:08 Pain Scale: Adult ha1 [place] Coma Score: 04/30 00:56 Eye Response: spontaneous(4). Motor Response: obeys commands(6). Verbal Response: sp4 oriented(5). Total: 15. MDM: 04/29 03:15 Medical Screening Exam initiated sp4 04/30 00:58 Differential diagnosis: Nonspecific abd pain, gastritis, cholecystitis, pancreatitis, sp4 appendicitis, diverticulitis, viral gastroenteritis, gastroenteritis. Data reviewed: vital signs, nurses notes, lab test result(s), radiologic studies, CT scan. Consideration of Admission/Observation Escalation of care including admission/observation considered. ED course: CT reveals evidence of acute diarrheal illness likely acute viral gastroenteritis. Patient stable for discharge home. We have explained in detail patient's findings to the patient and his father. At this time patient stable for discharge with as needed symptomatic medications. Advised 24 hours of clear liquid diet. 04/29 03:34 Order name: CBC with Diff; Complete Time: 05:25 ha1 04/29 03:34 Order name: CMP; Complete Time: 05:25 ha1 04/29 03:34 Order name: Lipase; Complete Time: 05:25 ha1 04/29 03:39 Order name: Urine Drug Screen; Complete Time: 05:31 sp4 04/29 03:39 Order name: UA Rfx Alexandru Cult if indicated; Complete Time: 05:25 sp4 04/29 04:27 Order name: CT Abd/Pelvis - IV Contrast Only sp4 04/29 03:34 Order name: IV Saline Lock; Complete Time: 04:17 ha1 04/29 03:34 Order name: Labs collected and sent; Complete Time: 04:17 ha1 Administered Medications: 04/29 03:58 Drug: Ondansetron IVP 8 mg IVP once; over 2 minutes Route: IVP; [facility] 04[facility]30 Follow up: Response: No adverse reaction ss12 04:00 Drug: Ketorolac IVP 30 mg IVP once Route: IVP; Site: right antecubital; 1 04:30 Follow up: Response: No adverse reaction ss12 04:00 Drug: NS 0.9% IV 1000 ml IV at 1000 ml once; to be given as a bolus over 60 minutes ha1 Route: IV; Rate: 1000 ml; Site: right antecubital; 05:28 Follow up: IV Status: Completed infusion; IV Intake: 1000ml ss12 04:00 Drug: NS 0.9% IV 1000 ml IV at 1000 ml once; to be given as a bolus over 60 minutes ha1 Route: IV; Rate: 1000 ml; Site: right antecubital; 05:28 Follow up: IV Status: Completed infusion; IV Intake: 1000ml ss12 04:02 Drug: metoCLOPramide IVP 10 mg IVP once; over 1 to 2 minutes Route: IVP; Site: right ha1 antecubital; 04:30 Follow up: Response: No adverse reaction ss12 04:05 Drug: Famotidine IVP 20 mg IVP once; dilute with 10 mL 0.9% NaCl; give over 2 minutes ha1 Route: IVP; Site: right antecubital; 04:30 Follow up: Response: No adverse reaction ss12 04:07 Drug: Pantoprazole IVP 40 mg IVP once Route: IVP; Site: right antecubital; ha1 05:27 Follow up: Response: No adverse reaction ss12 04:21 Not Given (Patient Refused): [id number] mg PO once ha1 Disposition: 04/30 00:59 Chart complete. sp4 Disposition Summary: 04/29/25 06:12 Discharge Ordered Notes: Location: Home sp4 Problem: new sp4 Symptoms: have improved sp4 Condition: Stable sp4 Diagnosis - Acute viral gastroenteritis sp4 - Acute nausea vomiting and diarrhea sp4 Followup: sp4 - With: Private Physician - When: 7 - 10 days - Reason: Recheck today's complaints Discharge Instructions: - Discharge Summary Sheet sp4 - Viral Gastroenteritis, Adult, [id number] sp4 Forms: - Work release form sp4 - Patient Portal Instructions sp4 Prescriptions: - Lomotil 2.5-0.025 mg Oral tablet - take 1 tablet ORAL route every 6 hours As needed PRN diarrhea; 30 tablet; sp4 Refills: 0, Product Selection Permitted - dicyclomine 20 mg Oral tablet - take 1 tablet ORAL route 4 times per day PRN abdominal cramps; 30 tablet; sp4 Refills: 0, Product Selection Permitted - ondansetron 8 mg Oral Tablet,disintegrating - take 1 tablet ORAL route every 8 hours PRN nausea; 30 tablet; Refills: 0, sp4 Product Selection Permitted Signatures: Dispatcher [employer] Carmen Dutta RN RN ha1 Sidney Orozco MD MD sp4 Alicia Vargas RN ss12
[2025-04-29 11:28] VITALS: TEMP 97.6
[2025-04-29 11:39] VITALS: BP 143/82; O2SAT 98
== END 2025-04-29 06:38 | disposition home or self-care (01) ==
LOC: ER 03:00
DX: A08.4 Viral intestinal infection, unspecified (principal)
CPT/HCPCS: 96361; 85025; 36415; 81003; 83690; 80053; 80307; 74177; 96375; 96374; 99284; Q9967; J1885; J2765; J2470; J2405; J7030